=== PATIENT | female | born 1970 | race Hispanic/Latino ===

== ENCOUNTER → 2020-05-18 | Outpatient (CLI) | payer OTHER | END | disposition home or self-care (01) | LOC: OIH 13:45 | PROVIDERS: ATTEND Internal Medicine | DX: M43.17 Spondylolisthesis, lumbosacral region (principal); M47.816 Spondylosis without myelopathy or radiculopathy, lumbar region; M48.061 Spinal stenosis, lumbar region without neurogenic claudication; R14.0 Abdominal distension (gaseous) | CPT/HCPCS: 72100 ==

== ENCOUNTER → 2020-06-12 | Outpatient (CLI) | payer OTHER | END | disposition home or self-care (01) | LOC: RAH 11:07 | PROVIDERS: ATTEND Internal Medicine | DX: M43.16 Spondylolisthesis, lumbar region (principal); M54.5 Low back pain | CPT/HCPCS: 72100 ==

== ENCOUNTER → 2020-08-20 | Outpatient (CLI) | payer OTHER | END | disposition home or self-care (01) | LOC: OIH 10:57 | PROVIDERS: ATTEND Internal Medicine | DX: I10 Essential (primary) hypertension (principal); M47.814 Spondylosis without myelopathy or radiculopathy, thoracic region | CPT/HCPCS: 71046 ==

== ENCOUNTER → 2022-05-13 | Outpatient (CLI) | payer OTHER | END | disposition home or self-care (01) | LOC: RAH 08:54 | PROVIDERS: ATTEND Internal Medicine | DX: M70.62 Trochanteric bursitis, left hip (principal); Y93.89 Activity, other specified | CPT/HCPCS: 73502 ==

== ENCOUNTER 2022-07-31 13:21 | Emergency (ER) | payer OTHER ==
[~2022-07-31] VITALS: Ht 154.9 cm; Wt 81.6 kg
[2022-07-31 13:25] VITALS: BP 143/74
[2022-07-31] MEDS ORDERED: TETRACAINE HCL 0.5% 4 ML OPHTH SOLN ONE (14:52)
[2022-07-31] MEDS ORDERED: FLUORESCEIN SODIUM 1 STRIP STRIP ONE (14:53)
[2022-07-31] MEDS ORDERED: ERYTHROMYCIN BASE 0.5% OPHTH OINT 1 GM TUBE OU SCH (15:30)
[2022-07-31] MEDS ORDERED: ERYT1OIN7 OP (17:21)
== END 2022-07-31 17:27 | disposition home or self-care (01) ==
LOC: EDH 13:21
DX: H10.9 Unspecified conjunctivitis (principal); E78.00 Pure hypercholesterolemia, unspecified; I10 Essential (primary) hypertension; Z90.49 Acquired absence of other specified parts of digestive tract; Z98.890 Other specified postprocedural states; Z86.73 Personal history of transient ischemic attack (TIA), and cerebral infarction without residual deficits

== ENCOUNTER 2025-09-24 08:58 | Inpatient (IN) | payer SELFPAY ==
[~2025-09-24] VITALS: Ht 154.9 cm; Wt 79.4 kg
[~2025-09-24 08:58] MED LIST: ERYT1OIN7 OP
[2025-09-24 09:24] LABS: IMMATURE GRANULOCYTE ABSOLUTE 0.04 K/uL (0-1); NUCLEATED RED BLOOD CELLS 0.0 % (0.0-0.19); PLATELET COUNT (AUTO) 333 K/uL (130-400); RED BLOOD CELL COUNT(AUTO) 4.36 MIL/uL (4.00-5.50); RED CELL DISTRIBUTION WIDTH 14.3 % (11.0-15.5); WHITE BLOOD COUNT (AUTO) 10.9 K/uL (4.8-10.8)
[2025-09-24 09:33] LABS: CREATININE 0.8 mg/dL (0.5-1.0); GLOMERULAR FILTR. RATE CALC 88.0 mL/min (>90); GLUCOSE,RANDOM 184.0 mg/dL (70-105); SODIUM SERUM 134.0 mmol/L (136-145); UREA NITROGEN, BLOOD 13.0 mg/dL (7-18)
[2025-09-24 09:40] LABS: INR 1.0 (0.85-1.15)
[2025-09-24] MEDS: FAMOTIDINE 20MG VIAL IV ONE (09:40)
[2025-09-24 09:50] LABS: TOTAL PROTEIN, SERUM 7.5 g/dL (6.0-8.3)
[2025-09-24 10:01] LABS: ASPARTATE AMINOTRANSFERASE 1232.0 U/L (10-37)
--- NOTE | 2025-09-24 11:00 | NUR ---
PT'S DAUGHTER INFORMED ME THAT PATIENT SELF MEDICATES TYLENOL AT HOME,NOT KEEPING APPROPRIATE DOSING. SHE ALSO INFORMED ME THAT PT HAS HISTORY OF COCAINE AND ALCOHOL USE.RELAYED INFORMATIONS TO DR KURTZ, NO NEW ORDERS AT THIS TIME.
[2025-09-24] MEDS: 0.9%NACL 1000ML 1,000 ML IV ONE (11:06)
[2025-09-24 12:13] LABS: APPEARANCE,URINE CLOUDY (CLEAR); GLUCOSE, URINE (UA) NEGATIVE (NEGATIVE); LEUKOCYTE ESTERASE ,URINE NEGATIVE Leu/uL (NEGATIVE); NITRATE,URINE NEGATIVE (NEGATIVE); OCCULT BLOOD,URINE NEGATIVE (NEGATIVE)
[2025-09-24 12:15] LABS: OTHER CASTS, URINE 2 /LPF (None Seen); SQUAMOUS EPITHELIAL CELL,UR MOD /HPF (0-2)
--- NOTE | 2025-09-24 12:41 | HMCIMG ---
EXAM: CT Abdomen and Pelvis Without IV contrast CLINICAL HISTORY: Abdominal pain TECHNIQUE: Axial computed tomography images of the abdomen and pelvis without intravenous contrast. CONTRAST: No IV contrast. COMPARISON: None provided. FINDINGS: LUNG BASES: Basal atelectasis along both lower lobes. LIVER: The liver appears to be enlarged in size; the right hepatic lobe measures up to 19.5 cm. GALLBLADDER AND BILE DUCTS: Post cholecytectomy status. PANCREAS: Unremarkable. SPLEEN: A subcentimeter-sized calcified granuloma. ADRENAL GLANDS: Unremarkable. KIDNEYS, URETERS, AND BLADDER: The kidneys appear within normal limits. There is no hydronephrosis or hydroureter. No urinary calculi are seen. STOMACH AND BOWEL: Unremarkable appearance of the stomach and bowel. No evidence of bowel obstruction. Colonic diverticulosis without diverticulitis. APPENDIX: No evidence of acute appendicitis on CT examination. PERITONEUM: No free fluid. No free air. LYMPH NODES: No lymphadenopathy is evident. REPRODUCTIVE: Hysterectomy. VASCULATURE: No evidence of abdominal aortic aneurysm. BONES: Anterolisthesis of the L5 vertebrae over the S1 vertebrae with breach along the pars interarticularis. Degenerative changes, more prominent along the visualized thoracic spine. IMPRESSION: 1. Hepatomegaly with the right hepatic lobe measuring up to 19.5 cm. 2. Anterolisthesis of L5 over S1 with pars interarticularis defect. 3. Moderate stool burden in the colon. /[place]
--- NOTE | 2025-09-24 13:25 | ERN ---
General Chief Complaint: Abdominal Pain Stated Complaint: ABD PAIN Time Seen by MD: 09:05 Source: patient, family History of Present Illness Initial Comments Ms Simpson, 55F was brought to ER by her daughter due to severe abdominal pain since 3 weeks. Her daughter reports that they have been to emergency room 4 times to [facility], was told 4 different diagnosis like lumbar strain, diverticulosis, spondylosis and the pain came back repeatedly. She reports diffuse abdominal pain on a scale of 10 x 10 since 3 weeks, was not passing stool since 2 days, lost 15 lbs in the last 3 weeks due to low intake of food, not relieved by any medication. She informs that they have tried lactulose and enema for clearing the bowel but have not helped much. Complaints no fever or weakness or jaundice or vomiting. Timing/Duration: getting worse Severity: moderate Allergies: Coded Allergies: No Known Allergies (Unverified Allergy, Unknown, 07/31/22) Home Meds Active Scripts Erythromycin Base (Erythromycin) 1 Gm Oint...g., 1 GM OP QID for eye infection for 7 Days, #1 TUBE Prov:MELODIE RENNER 07/31/22 Past Medical History Past Medical History: Depression, Diabetes-Type II, Diverticulitis, Diverticulosis, Hypertension, Stroke Past Surgical History: Hysterectomy, Cholecystectomy Constitutional: (-) chills, (-) diaphoresis, (-) fever, (-) malaise, (-) weakness, (-) other documentation EENTM: (-) eye pain, (-) blurred vision, (-) tearing, (-) double vision, (-) ear pain, (-) ear discharge, (-) nose pain, (-) nose congestion, (-) throat pain, (-) Throat swelling, (-) mouth pain, (-) tooth pain, (-) mouth swelling, (-) other documentation Respiratory: (-) cough, (-) orthopnea, (-) short of breath, (-) stridor, (-) wheezing, (-) other documentation Cardiovascular: (-) chest pain, (-) edema, (-) palpitations, (-) syncope, (-) dyspnea on exertion, (-) other documentation Gastrointestinal/Abdominal: (+) abdominal pain, (+) abdominal distention, (+) constipation Musculoskeletal: (+) back pain Physical Exam General Appearance: (+) severe distress Orientation: (+) alert, (+) oriented x 3 Head/Face Trauma: No Eye: bilateral eye normal inspection Ear, Nose, Throat: (+) hearing grossly normal, (+) normal ENT inspection, (+) moist mucous membraine Neck: (+) normal inspection, (+) supple Respiratory: (+) chest non-tender, (+) lungs clear, (+) well ventilated Heart: (+) regular, (+) no gallop Vascular: (+) no edema Gastrointestinal: (+) soft, (+) non-tender Breast Exam: (+) deferred Genital: (+) deferred Rectal: (+) deferred Extremities: (+) normal range of motion Neurologic/Psychiatric: (+) normal speech, (+) no motor defecits, (+) no sensory deficits Skin: (+) normal color Results Laboratory and Microbiology Lab and Micro Result Laboratory Tests Test 09/24/25 09:16 09/24/25 11:57 White Blood Count 10.9 K/uL (4.8-10.8) H Red Blood Count 4.36 MIL/uL (4.00-5.50) Hemoglobin 11.5 g/dL (12.0-16.0) L Hematocrit 35.9 % (36-48) L Mean Corpuscular Volume 82.3 fL (79-99) Mean Corpuscular Hemoglobin 26.4 pg (27.0-33.0) L Mean Corpuscular Hemoglobin Concent 32.0 g/dL (32.0-36.0) Red Cell Distribution Width 14.3 % (11.0-15.5) Platelet Count 333 K/uL (130-400) Mean Platelet Volume 9.8 fL (7.5-10.5) Immature Granulocyte % (Auto) 0.4 % (0-1) Neutrophils (%) (Auto) 85.3 % (40.0-77.0) H Lymphocytes (%) (Auto) 7.3 % (21.0-51.0) L Monocytes (%) (Auto) 5.4 % (3.0-13.0) Eosinophils (%) (Auto) 1.2 % (0.0-8.0) Basophils (%) (Auto) 0.4 % (0.0-5.0) Neutrophils # (Auto) 9.3 K/uL (1.8-7.7) H Lymphocytes # (Auto) 0.8 K/uL (1.0-4.8) L Monocytes # (Auto) 0.6 K/uL (0.1-1.0) Eosinophils # (Auto) 0.13 K/uL (0.00-0.70) Basophils # (Auto) 0.04 K/uL (0.00-0.20) Absolute Immature Granulocyte (auto 0.04 K/uL (0-1) Nucleated Red Blood Cells 0.0 % (0.0-0.19) White Cell Morphology Comment See comments Prothrombin Time 10.6 SEC (9.6-11.6) Prothromb Time International Ratio 1.00 (0.85-1.15) Activated Partial Thromboplast Time 25.6 SEC (26.3-35.5) L Sodium Level 134 mmol/L (136-145) L Potassium Level 4.0 mmol/L (3.5-5.1) Chloride Level 99 mmol/L (101-111) L Carbon Dioxide Level 26 mmol/L (21-32) Blood Urea Nitrogen 13 mg/dL (7-18) Creatinine 0.8 mg/dL (0.5-1.0) Glomerular Filtration Rate Calc 88 mL/min (>90) Random Glucose 184 mg/dL (70-105) H Lactic Acid Level 2.0 mmol/L (0.8-2.5) Total Calcium 8.9 mg/dL (8.5-10.1) Total Bilirubin 1.6 mg/dL (0.2-1.0) H Direct Bilirubin 0.9 mg/dL (0.0-0.3) H Aspartate Amino Transf (AST/SGOT) 1232 U/L (10-37) *H Alanine Aminotransferase (ALT/SGPT) 1066 U/L (12-78) *H Alkaline Phosphatase 178 U/L (50-136) H Troponin I High Sensitivity < 4 ng/L (4-50) L Total Protein 7.5 g/dL (6.0-8.3) Albumin 3.6 g/dL (3.5-5.0) Lipase 28 U/L (16-77) Procalcitonin 0.18 ng/mL (0.05-0.5) Urine Color YELLOW (YELLOW) Urine Appearance CLOUDY (CLEAR) H Urine pH 5.5 (5.0-8.0) Urine Specific [place] 1.031 (1.001-1.031) Urine Protein 20 mg/dL (NEGATIVE) H Urine Glucose (UA) NEGATIVE mg/dL (NEGATIVE) Urine Ketones 5 mg/dL (NEGATIVE) H Urine Occult Blood NEGATIVE (NEGATIVE) Urine Nitrate NEGATIVE (NEGATIVE) Urine Bilirubin NEGATIVE mg/dL (NEGATIVE) Urine Urobilinogen 3 mg/dL (0.2-1.0) H Urine Leukocyte Esterase NEGATIVE Randy/uL Urine RBC 2-5 /HPF (0-1) H Urine WBC 0-1 /HPF (0-1) Urine Squamous Epithelial Cells MOD /HPF (0-2) Urine Bacteria None /HPF (None Seen) Urine Other Casts 2 /LPF (None Seen) MDM MDM: Differential diagnosis: Rationale: Tests considered and ordered secondary to shared decision making include: labs, ECG and radiology Previous outside records reviewed: Old ER visits. Risk of complication and/or morbidity or mortality of patient management: None Medications-Per medication reconciliation Need for hospitalization: Patient does meet criteria for hospitalization. Need for emergency major/minor surgery: No There are no social concerns with this patient. Prescription drug management Prescriptions will include symptomatic care Patient's prior external medical records from other ER visits were reviewed by me as indicated. Prior testing and results from previous visits were reviewed. Prior tests were taken into account with medical decision making and resource utilization, independent historian/historians were used to obtain complete me dical history. I independently interpreted the test that were performed, results were reviewed by me and considered findings on radiology if ordered. Medical management and examination interpretation discussions were had by me with other qualified healthcare professionals as indicated for the patient's care. ED Course Orders Procedure Category Date Status Time 12 Lead Ekg Tracing- EKG 09/24/25 Logged Technical : Cbc With Differential LAB 09/24/25 Complete 09:06 Basic Metabolic Panel LAB 09/24/25 Complete 09:06 Hepatic Function Panel LAB 09/24/25 Complete 09:06 Lactic Acid LAB 09/24/25 Complete 09:06 Lipase LAB 09/24/25 Complete 09:06 Procalcitonin LAB 09/24/25 Complete 09:06 Pt And Ptt LAB 09/24/25 Complete 09:06 Troponin I High LAB 09/24/25 Complete Sensitivity 09:06 Urinalysis LAB 09/24/25 Complete W/Microscopic 09:06 Ondansetron 4mg Inj PHA 09/24/25 Complete (Zofran 4mg Inj) 09:30 Famotidine 20mg Vial PHA 09/24/25 Complete (Pepcid 20mg Vial) 09:30 Morphine 2mg Syg PHA 09/24/25 Complete (Morphine 2mg Syg) 09:30 Ct Abdomen/Pelvis W/O CT 09/24/25 Resulted Contrast 09:25 Morphine 2mg Syg PHA 09/24/25 Complete (Morphine 2mg Syg) 11:00 0.9%Nacl 1000ml (Ns PHA 09/24/25 Complete 1000ml) 11:00 Current Medications Medications (Trade) Dose Ordered Sig/Roc Route PRN Reason Start Time Stop Time Status Last Admin Dose Admin Famotidine (Pepcid 20mg Vial) 20 mg ONCE ONCE IV 09/24/25 09:30 09/24/25 09:31 DC 09/24/25 09:40 Morphine Sulfate (morPHINE 2MG SYG) 2 mg ONCE ONCE IVP 09/24/25 09:30 09/24/25 09:31 DC 09/24/25 09:41 Morphine Sulfate (morPHINE 2MG SYG) 2 mg ONCE ONCE IVP 09/24/25 11:00 09/24/25 11:01 DC 09/24/25 11:05 Ondansetron HCl (zoFRAN 4MG INJ) 4 mg ONCE ONCE IVP 09/24/25 09:30 09/24/25 09:31 DC 09/24/25 09:40 Sodium Chloride 1,000 ml @ 0 mls/hr ONCE ONCE IV 09/24/25 11:00 09/24/25 11:01 DC 09/24/25 11:06 Vital Signs Date Time Temp Pulse Resp B/P (MAP) Pulse Ox O2 Delivery O2 Flow Rate FiO2 09/24/25 12:58 99.3 95 21 140/80 98 Room Air* 0 09/24/25 11:00 99.3 89 21 146/74 98 Room Air* 0 09/24/25 09:48 99.3 89 22 127/70 96 Room Air* 0 09/24/25 08:59 97.3 92 18 128/64 54 Room Air 0 DX & DISP Disposition: Inpatient Departure Impression: Primary Impression: Transaminitis Condition: Stable Referrals: MACY JC MD (PCP) CHIVO ESPINOZA MD Sep 24, 2025 13:25 BRANNON KURTZ MD Sep 24, 2025 14:12
[2025-09-24] MEDS: DEXTROSE 5 %-0.45 % NACL 1,000 ML IV SCH (18:31)
[2025-09-24] MEDS ORDERED: LISI40TA15 PO (20:39)
[2025-09-24] MEDS ORDERED: AMLO-258 PO (20:39)
[2025-09-24] MEDS ORDERED: METF-526 PO (20:39)
[2025-09-24] MEDS ORDERED: LIRA0.6P SQ (20:39)
[2025-09-24 21:25] VITALS: BP 134/95; PULSE 109; RESP 20; TEMP 102.1
[2025-09-24 21:30] VITALS: O2SAT 93
[2025-09-24] MEDS ORDERED: ATOR10 PO (21:30)
[2025-09-25] VITALS (8 sets, daily range): BP systolic 132–154; BP diastolic 63–79; PULSE 96–117; RESP 14–22; TEMP 98–101.9; O2SAT 92–95
[2025-09-25 05:15] LABS: ASPARTATE AMINOTRANSFERASE 336.0 U/L (10-37); CREATININE 0.6 mg/dL (0.5-1.0); GLOMERULAR FILTR. RATE CALC 107.0 mL/min (>90); GLUCOSE,RANDOM 157.0 mg/dL (70-105); SODIUM SERUM 134.0 mmol/L (136-145); TOTAL PROTEIN, SERUM 6.8 g/dL (6.0-8.3); UREA NITROGEN, BLOOD 10.0 mg/dL (7-18)
--- NOTE | 2025-09-25 15:51 | NUR ---
DCP CM MET WITH PT THIS AFTERNOON, INITIAL ASSESSMENT DONE. PATIENT IS INDEPENDENT PRIOR TO HOSPITALIZATION, LIVES AT HOME WITH HER AND DAUGHTER. DENIES ANY EQUIPMENT/SERVICES. FEELS SAFE TO GO BACK HOME, STILL DRIVE, FAMILY ABLE TO ASSIST WITH TRANSPORTATION AND NEEDS NECESSARY. GOES TO [facility] FOR MEDS. DCP HOME ONCE STABLE. CM TO CONTINUE TO FOLLOW UP.
--- NOTE | 2025-09-25 20:00 | HP ---
HISTORY OF PRESENT ILLNESS: The patient of Dr. Awan came to the Emergency Room complaining of persistent abdominal pain for the last 3 weeks. The patient has been coming to the Emergency Room several times for the same reason, and there has been no nausea, vomiting, or diarrhea. No jaundice. The patient was evaluated with labs and was found to have transaminases above 1000, and CT scan shows some hepatomegaly of 20 cm. I was called to assume care. PAST MEDICAL HISTORY: Type 2 diabetes, hypertension, depression. PAST SURGICAL HISTORY: Hysterectomy, cholecystectomy. REVIEW OF SYSTEMS: No fever, chills, seizure, loss of consciousness. No chest pain, palpitation. No cough, wheezes, or rhonchi. No nausea, vomiting, or diarrhea. No dysuria, urgency, or frequency. No rashes, petechiae, or ecchymosis. No hallucinations, delusions. No suicidal ideation. PHYSICAL EXAMINATION: GENERAL: She is awake, alert, oriented to person, time, and place. Not in distress. VITAL SIGNS: In the chart. HEENT: Normocephalic, atraumatic. LUNGS: Clear to auscultation. HEART: S1, S2 are distant. ABDOMEN: Prominent, soft. Tender to deep palpation, right upper quadrant. Hepatomegaly is palpated. Bowel sounds are present. LABORATORY DATA: WBC 10.9, hemoglobin 11.5, platelets 333, potassium 4, sodium 134, BUN 13, creatinine 0.8, lactic acid 2, AST 1232, ALT 1066. Lipase was 28, albumin 3.6, total bilirubin 1.6. Abdomen and pelvis CT scan was reported as: * Hepatomegaly with the right hepatic lobe measuring 19.5 cm. * Anterolisthesis of L5 over L1 with pars interarticularis defect. * Moderate stool burden in the colon. ASSESSMENT AND PLAN: * Abdominal pain. Positive workup for hepatomegaly as well as significant increased transaminases consistent with hepatitis. Hepatitis profile has been requested. GI consultation was made. At this time, doctor on-call is taking only emergencies. * Continue with Dilaudid for pain management. There is no morphine available. * Continue treatment for type 2 diabetes, hypertension. Follow up in a.m. with labs. DOS: 09/25/2025 TID: [id number] RECEIPT: [id number] [facility]
[2025-09-25] MEDS: LACTULOSE 20 GM/30 ML UDCUP PO ONE (23:00)
[2025-09-26] VITALS (8 sets, daily range): BP systolic 129–153; BP diastolic 68–79; PULSE 80–117; RESP 18–22; TEMP 98.3–100.7; O2SAT 94–97
[2025-09-26 10:01] LABS: IMMATURE GRANULOCYTE ABSOLUTE 0.11 K/uL (0-1); NUCLEATED RED BLOOD CELLS 0.0 % (0.0-0.19); PLATELET COUNT (AUTO) 257 K/uL (130-400); RED BLOOD CELL COUNT(AUTO) 3.79 MIL/uL (4.00-5.50); RED CELL DISTRIBUTION WIDTH 14.6 % (11.0-15.5); WHITE BLOOD COUNT (AUTO) 13.0 K/uL (4.8-10.8)
[2025-09-26 10:17] LABS: CREATININE 0.7 mg/dL (0.5-1.0); GLOMERULAR FILTR. RATE CALC 103.0 mL/min (>90); GLUCOSE,RANDOM 176.0 mg/dL (70-105); SODIUM SERUM 129.0 mmol/L (136-145); UREA NITROGEN, BLOOD 8.0 mg/dL (7-18)
[2025-09-26 10:22] LABS: ASPARTATE AMINOTRANSFERASE 76.0 U/L (10-37); TOTAL PROTEIN, SERUM 6.8 g/dL (6.0-8.3)
--- NOTE | 2025-09-26 11:20 | EKG ---
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
[2025-09-26 12:51] LABS: CREATINE KINASE, TOTAL 90 U/L (21-232); GAMMA GLUTAMYL TRANSFERASE 304 U/L (5-85)
--- NOTE | 2025-09-26 16:29 | HMCIMG ---
CHEST 1VW REASON: LEUKOCYSTOSIS COMPARISON: Prior study from 08/20/2020. FINDINGS: Single view of the chest was obtained. Lungs are clear. There is mild cardiomegaly with left ventricular contour.. There is no pulmonary vascular congestion. Mediastinum and bony thorax appear unremarkable. IMPRESSION: 1. Cardiomegaly with left ventricular contour 2. No evidence of airspace consolidation or pulmonary venous congestion..
[2025-09-26 19:33] LABS: HEPATITIS A IGM ANTIBODY Non-Reactive (Nonreactive); HEPATITIS B CORE IGM ANTIBODY Non-Reactive (Negative)
[2025-09-26 20:10] LABS: COVID19 (SARS ANTIGEN RAPID) PRESUMPTIVE NEGATIVE (NEGATIVE); INFLUENZA TYPE A Negative For Type A (NEGATIVE); INFLUENZA TYPE B Negative For Type B (NEGATIVE)
[2025-09-27] VITALS (8 sets, daily range): BP systolic 131–165; BP diastolic 60–75; PULSE 94–107; RESP 18–20; TEMP 99–101.1; O2SAT 90–91
--- NOTE | 2025-09-27 03:20 | PN ---
SUBJECTIVE: The patient continues with diffuse abdominal pain. No nausea or vomiting. She had an episode of fever yesterday. Workup was sent. We will test the patient for influenza, COVID and strep as well. Otherwise, blood culture has been sent. OBJECTIVE: GENERAL: Currently, she is awake, alert, oriented in person, time, and place. VITAL SIGNS: Blood pressure 132/76, pulse 117, respirations 18, temperature 100.8. HEENT: Normocephalic, atraumatic. LUNGS: Clear to auscultation. ABDOMEN: Prominent, soft, nontender. No masses. Bowel sounds are present. EXTREMITIES: No clubbing or cyanosis. LABORATORY DATA: WBC count 13, hemoglobin 10, platelets 257. Sodium 129, potassium 4.1, BUN 8, creatinine 0.7, glucose 176, total bilirubin down to 1.2, AST down to 76, ALT 375. ASSESSMENT AND PLAN: * Fever. Workup will be sent including influenza, strep, pending hepatitis profile, GGT, total creatinine kinase. * Hepatomegaly, transaminitis. Pending results of tests, continue to monitor. * Leukocytosis, fever, blood culture has been sent. The patient will be started on cefepime 1 g IV pending results of test. * Type 2 diabetes, hypertension. Continue home medications. * Ultrasound of the abdomen will be scheduled as well. * Follow up in a.m. with results. DOS: 09/26/2025 TID: [id number] RECEIPT: [id number] MTDJessika
[2025-09-27 06:01] LABS: INR 1.12 (0.85-1.15)
[2025-09-27 06:14] LABS: ASPARTATE AMINOTRANSFERASE 51.0 U/L (10-37); CREATININE 0.6 mg/dL (0.5-1.0); GLOMERULAR FILTR. RATE CALC 107.0 mL/min (>90); GLUCOSE,RANDOM 154.0 mg/dL (70-105); SODIUM SERUM 131.0 mmol/L (136-145); TOTAL PROTEIN, SERUM 6.9 g/dL (6.0-8.3); UREA NITROGEN, BLOOD 9.0 mg/dL (7-18)
--- NOTE | 2025-09-27 06:26 | HMCIMG ---
EXAMINATION: ULTRASOUND OF THE ABDOMEN WITH COLOR DOPPLER. CLINICAL HISTORY: Leukocytosis. COMPARISON: CT abdomen and pelvis without contrast dated 09/24/2025. TECHNIQUE: Real-time grayscale ultrasound images of the abdomen. In addition, color Doppler is medically necessary to perform in order to evaluate vascularity and blood flow. FINDINGS: Liver: Bulky in caliber, the right hepatic lobe measures 19.0 cm in the craniocaudal dimension. There is increased echogenicity of the hepatic parenchyma. There is no intrahepatic biliary ductal dilatation. There is normal spectral Doppler of the main portal vein. There are areas of focal fat sparing, adjacent to gallbladder fossa. Gallbladder: Post cholecystectomy status. Common bile duct is normal in caliber, measuring 0.4 cm. Spleen is bulky in caliber and measures 13.4 x 5.1 x 4.4 cm in craniocaudal, AP and transverse dimensions respectively. There are small calcific areas. Pancreas: Head and body appear normal in caliber and echotexture. No calcification or dilated pancreatic duct. Tail is obscured by overlying bowel gas. The kidneys are normal in caliber, the right kidney measures 10.7 x 4.5 x 5.8 cm and the left kidney measures 10.2 x 5.3 x 4.3 cm in craniocaudal, AP, and transverse dimensions respectively. There is normal renal cortical thickness, and cortical echogenicity. There is no renal calculus or hydronephrosis. The proximal and mid aspects of abdominal aorta are normal in caliber measuring 2.3 cm and 2.1 cm in the AP dimension respectively. The distal aorta is obscured by overlying bowel gas. Visualized aspects of the inferior vena cava are unremarkable. IMPRESSION: Hepatomegaly with hepatic steatosis and focal area of fat sparing. Post cholecystectomy status. Mild splenomegaly with granulomas. /[place]
[2025-09-27 10:14] LABS: IMMATURE GRANULOCYTE ABSOLUTE 0.05 K/uL (0-1); NUCLEATED RED BLOOD CELLS 0.0 % (0.0-0.19); PLATELET COUNT (AUTO) 274 K/uL (130-400); RED BLOOD CELL COUNT(AUTO) 3.87 MIL/uL (4.00-5.50); RED CELL DISTRIBUTION WIDTH 14.5 % (11.0-15.5); WHITE BLOOD COUNT (AUTO) 11.4 K/uL (4.8-10.8)
[2025-09-28] VITALS (9 sets, daily range): BP systolic 119–158; BP diastolic 60–85; PULSE 79–96; RESP 16–20; TEMP 97.9–100.1; O2SAT 93–95
--- NOTE | 2025-09-28 00:35 | HMCIMG ---
STUDY MR abdomen without IV contrast with MRCP CLINICAL HISTORY Persistent abdominal pain TECHNIQUE Multiplanar multisequence MRI of the abdomen including MRCP sequences performed without intravenous contrast CONTRAST None COMPARISON Abdominal ultrasound 09/26/[address] abdomen and pelvis without contrast 09/24/2025 FINDINGS Lower thorax Small bilateral pleural effusions are present, measuring up to approximately 1.5 cm on the right and 1.0 cm on the left in maximal thickness, with associated subpleural parenchymal scarring and dependent atelectasis at the lung bases. Liver and biliary system The liver is enlarged, measuring up to approximately 23 cm in craniocaudal dimension. Hepatic parenchyma demonstrates diffusely increased T1 and T2 signal characteristics consistent with fatty infiltration without a discrete focal hepatic mass. No intrahepatic biliary ductal dilatation is seen. The gallbladder is surgically absent. The common bile duct measures approximately 0.7 cm in diameter with smooth tapering to the ampullary region, without intraluminal filling defect on MRCP to suggest choledocholithiasis. Pancreas and spleen Pancreatic contour and signal are within normal limits without ductal dilatation or peripancreatic fluid collection. The spleen is normal in size and signal without focal lesion. Adrenals and kidneys Adrenal glands are unremarkable. Both kidneys are normal in size and morphology without hydronephrosis or focal renal mass. There is symmetric perinephric fat stranding around both kidneys, similar to prior CT, without discrete perinephric collection. Bowel and mesentery Stomach and visualized bowel loops show no evidence of obstruction or focal mural thickening on this noncontrast MRI. No free intraperitoneal fluid or loculated collection is identified. Vasculature and lymph nodes Abdominal aorta and major branches are normal in caliber without aneurysm. No pathologic abdominal or retroperitoneal lymphadenopathy is seen. Musculoskeletal There is edema along the left psoas muscle compatible with myositis or strain, concordant with prior CT. Degenerative changes at the lumbosacral junction are partially visualized, with advanced left-sided facet arthrosis at L4-L5 and L5-S1 and adjacent soft tissue edema. IMPRESSION * Hepatomegaly with diffuse hepatic steatosis; no focal hepatic lesion or biliary obstruction identified. * Status post cholecystectomy with common bile duct measuring approximately 0.7 cm and smoothly tapering to the ampulla, without MRCP evidence of choledocholithiasis. * Symmetric bilateral perinephric fat stranding without hydronephrosis or organized collection, nonspecific and unchanged from prior CT. * Left psoas muscle edema and advanced left L4-L5 and L5-S1 facet arthrosis, compatible with degenerative change and possible mechanical back or flank pain source, unchanged compared with prior CT. /[place]
[2025-09-28 04:57] LABS: IMMATURE GRANULOCYTE ABSOLUTE 0.06 K/uL (0-1); NUCLEATED RED BLOOD CELLS 0.2 % (0.0-0.19); PLATELET COUNT (AUTO) 293 K/uL (130-400); RED BLOOD CELL COUNT(AUTO) 3.72 MIL/uL (4.00-5.50); RED CELL DISTRIBUTION WIDTH 14.4 % (11.0-15.5); WHITE BLOOD COUNT (AUTO) 9.9 K/uL (4.8-10.8)
[2025-09-28 05:33] LABS: ASPARTATE AMINOTRANSFERASE 104.0 U/L (10-37); CREATININE 0.7 mg/dL (0.5-1.0); GLOMERULAR FILTR. RATE CALC 103.0 mL/min (>90); GLUCOSE,RANDOM 149.0 mg/dL (70-105); SODIUM SERUM 132.0 mmol/L (136-145); TOTAL PROTEIN, SERUM 6.9 g/dL (6.0-8.3); UREA NITROGEN, BLOOD 11.0 mg/dL (7-18)
[2025-09-28] MEDS: LIRAGLUTIDE 0.6 MG SQ SCH (09:00)
[2025-09-28] MEDS: amLODIPine 5 MG TAB PO SCH (10:08)
[2025-09-28] MEDS: LISINOPRIL 40 MG TABLET PO SCH (10:09)
[2025-09-28] MEDS ORDERED: PoTASSium chl 10% ELIXIR 20MEQ 20 MEQ/15 ML UDCUP PO PRN (15:00)
[2025-09-28] MEDS ORDERED: VANCOMYCIN PROTOCOL PER PHARMACY IV SCH (15:30)
[2025-09-28] MEDS: VANCOMYCIN 1.25 GM/250 ML BAG 250 ML IV SCH (17:17)
[2025-09-28] MEDS: PHARMACY COMMUNICATION MISC SCH (17:18)
--- NOTE | 2025-09-28 17:21 | NUR ---
REFUSING ENEMA AT THIS TIME: PATIENT REFUSED ENEMA WHEN ORIGINALLY ORDERED DUE TO PAIN. OFFERED TO PERFORM ENEMA BUT PATIENT REFUSED DUE TO FAMILY COMING TO VISIT. EDUCATED THAT EMEMA MAY HELP WITH ABDOMINAL DISCOMFORT BUT PATIENT REFUSED AND REQUESTED PAIN MEDICATION INSTEAD. WILL CONTINUE TO MONITOR AND OFFER LATER.
--- NOTE | 2025-09-28 20:09 | NUR ---
PATIENT AND FAMILY REQUESTING FOR CHANGE OF PRIMARY. DOES NOT WANT DR WOMACK OR DR JC PROVIDER. WOULD LIKE TRANSFER OF CARE FOR HOSPITALIST. REACHED OUT TO DR WOMACK. NO ANSWER.
--- NOTE | 2025-09-28 20:29 | PN ---
SUBJECTIVE: The patient is still having fevers 106 and 104 overnight. She has had blood cultures sent, pending results. Continue with cefepime IV. Otherwise, she is reporting improvement from the abdominal pain. OBJECTIVE: GENERAL: Currently awake, alert, and oriented in person, time, and place. VITAL SIGNS: Blood pressure 135/73, pulse 94, respirations 18. HEENT: Normocephalic, atraumatic. LUNGS: Clear to auscultation. HEART: S1, S2 are distant. ABDOMEN: Soft and nontender. EXTREMITIES: No clubbing or cyanosis, no edema. LABORATORY DATA: WBC count 11.4, hemoglobin 10.4, platelets 274. Sodium 131, potassium 4, BUN 9, creatinine 0.6, glucose 154. Total bilirubin down to 1.2, AST 51, ALT 270, albumin 2.3. Ultrasound shows hepatomegaly of 19 cm with hepatic steatosis and focal areas of fat sparing. Status post cholecystectomy. Mild splenomegaly with granulomas. Blood cultures reported with no growth after 24 hours. Previous culture shows gram-positive cocci in cluster 2 out of 2 sets, pending results of final ID. ASSESSMENT AND PLAN: * Fever. Positive cultures pending results of ID and sensitivity. Continue with cefepime IV. * Abdominal pain improving. Continue with analgesics. * Hepatosplenomegaly. Continue to monitor. Unknown reason at this time. * Type 2 diabetes. Resume metformin. * Abnormal LFTs with AST and ALT, elevated GGT in a patient with morbid obesity as well as on statins. We are going to discontinue atorvastatin. Continue to monitor liver enzymes that has improved progressively. * Hyperbilirubinemia, 1.3-1.2. MRCP has been ordered. Ultrasound shows normal caliber common bile duct. Continue to monitor. * Follow up in a.m. with results of tests. DOS: 09/27/2025 TID: [id number] RECEIPT: [id number] [facility]ENTER[facility]
--- NOTE | 2025-09-28 20:33 | NUR ---
NEW CONSULT FOR HOSPITALIST, SHANTA MADE AWARE OF PATIENT CHOICE TO NO LONGER BE UNDER HIS CARE.
--- NOTE | 2025-09-28 21:10 | NUR ---
ENEMA: PT REFUSED TO HAVE FLEETS ENEMA GIVEN AT THIS TIME. STATES SHE WANTS TO WAIT FOR HER DAUGHTER IN AM. DULCOLAX 10 MG PO GIVEN PRN AT THIS TIME.
--- NOTE | 2025-09-28 22:00 | NUR ---
NEW CONSULT: NEW CONSULT FOR DR. MANZANO FOR MEDICAL MANAGEMENT. ANSWERING SERVICE CALLED, LENA Nuñez NP COVERING. NURSE WAITING FOR CALL BACK.
[2025-09-29] VITALS (8 sets, daily range): BP systolic 126–153; BP diastolic 63–103; PULSE 85–102; RESP 13–19; TEMP 97.5–102; O2SAT 96–97
[2025-09-29 04:20] LABS: IMMATURE GRANULOCYTE ABSOLUTE 0.14 K/uL (0-1); NUCLEATED RED BLOOD CELLS 0.0 % (0.0-0.19); PLATELET COUNT (AUTO) 295 K/uL (130-400); RED BLOOD CELL COUNT(AUTO) 3.67 MIL/uL (4.00-5.50); RED CELL DISTRIBUTION WIDTH 14.5 % (11.0-15.5); WHITE BLOOD COUNT (AUTO) 10.7 K/uL (4.8-10.8)
[2025-09-29 04:44] LABS: ASPARTATE AMINOTRANSFERASE 190.0 U/L (10-37); CREATININE 0.6 mg/dL (0.5-1.0); GLOMERULAR FILTR. RATE CALC 107.0 mL/min (>90); GLUCOSE,RANDOM 148.0 mg/dL (70-105); SODIUM SERUM 136.0 mmol/L (136-145); TOTAL PROTEIN, SERUM 6.6 g/dL (6.0-8.3); UREA NITROGEN, BLOOD 10.0 mg/dL (7-18)
--- NOTE | 2025-09-29 06:55 | NUR ---
DR HOPKINS: DR. JC MADE AWARE PT/FAMILY DO NOT WISH TO HAVE DR. WOMACK OR DR. JC PRIMARY CARE PHYSICIANS. DR. JC ASKED TO HAVE PRIMARY SERVICES TRANSFERRED TO HOSPITALIST GROUP.
--- NOTE | 2025-09-29 11:11 | PN ---
SUBJECTIVE: The patient's fever has decreased. Continue with IV cefepime. Cultures results are still pending. OBJECTIVE: GENERAL: She is currently awake, alert, oriented in person, time and place. Not in distress. VITAL SIGNS: Blood pressure 122/72, pulse 93, respirations 18. HEENT: Normocephalic, atraumatic. LUNGS: Clear to auscultation. ABDOMEN: Prominent, soft, nontender. No rebound. Hepatomegaly is felt. EXTREMITIES: No clubbing, cyanosis, no edema. LABORATORY DATA: WBC count down to 9.9, hemoglobin 9.8, platelets 293. Sodium 132, potassium 3.6, BUN 11, creatinine 0.7, glucose 149. Total bilirubin 1.3, AST 104, ALT 250, albumin 2.2. Blood cultures are still pending. It is gram positive cocci, pending ID. MRCP report shows hepatomegaly with diffuse hepatic steatosis. No focal hepatic lesions or biliary obstruction. Common bile duct is normal, 0.7 cm. Symmetrical bilateral perinephric fat stranding without hydronephrosis or organized collection. Unchanged from previous CT. Left psoas muscle edema and advanced left L4-L5 and L5-S1 facet arthrosis compatible with degenerative change and possible mechanical back or flank pain source, unchanged compared to previous CT scan. ASSESSMENT AND PLAN: * Back pain most likely related to L4-L5, L5-S1 arthrosis. Continue with analgesics. * Abdominal pain, hepatomegaly. The MRCP did not show any splenomegaly at this time. Continue to monitor. Abnormal LFTs have decreased since admission. The patient is off statin. Continue to monitor. * Fever, leukocytosis. The patient's cultures are still pending. However, the WBC count has improved with cefepime. We will continue with current treatment and we are going to schedule her for an echocardiogram and adjust antibiotics with results of cultures. The patient is being followed by Dr. Alston. We will transfer service to him. DOS: 09/28/2025 TID: [id number] RECEIPT: [id number] [facility]
--- NOTE | 2025-09-29 11:29 | NUR ---
SPOKE TO CLARITZA MOURA NP REGARDING PATIENT TRANSFERRING SERVICE FROM DR. JC TO [facility]. GYMNASTICS COACH OR INSTRUCTOR STATED TRANSFERRING PATIENT TO THEIR LIST WAS NOT POSSIBLE. FAMILY WISHES TO NOT BE RECEIVING CARE FROM DR. WOMACK OR DR. JC.
--- NOTE | 2025-09-29 12:23 | NUR ---
NOTIFIED BRIJESH DOUGHERTY NP REGARDING NEW CONSULT FOR PATIENT FRO ACUTE HEPATITIS. ALLOCATIONS CLERK AWARE.
--- NOTE | 2025-09-29 12:37 | NUR ---
CALLED DR. MANZANO FOR NEW CONSULT ON PATIENT. NO ANSWER. NURSE WAITING FOR CALL BACK.
--- NOTE | 2025-09-29 12:50 | NUR ---
FLEET ENEMA PERFORMED ON PATIENT. PATIENT NOTED TO NOT HAVE A NORMAL, SOFT BOWEL MOVEMENT.
[2025-09-29] MEDS: PoTASSium chloRIDE 20MEQ ER 20 MEQ ERTAB PO PRN (13:55)
--- NOTE | 2025-09-29 15:35 | CONS ---
GASTROENTEROLOGY CONSULTATION NOTE Date of Consultation: Sep 29, 2025 Time of Consultation: 15:29 History of Present Illness: [This is a 55-year-old female patient past medical history for type 2 diabetes, hypertension, and depression who presented to the emergency room with severe abdominal pain for the past three weeks. Initial WBC of 10.9, hemoglobin 11.5, platelets 333. Hemoglobin has since trended down to 9.7. Initial chemistries significant for sodium of 134, chloride 99, total bilirubin of 1.6, direct bilirubin 0.9, AST of 1232, ALT 1066, alkaline phos 178. Lipase of 28. Total bilirubin had trended down to 1.2 but has since increased to 1.5 today. AST has decreased to 190, ALT now at 304, alkaline phosphatase trended up to 187. Albumin of 2.1. PT 11.7, INR 1.12. RENETTA negative. Hepatitis panel negative. Initial CT of abdomen and pelvis showing hepatomegaly with the right hepatic lobe measuring up to 19.5 cm, anterolisthesis of L5 over S1 with pars interarticularis defect, moderate stool burden in colon. Abdominal ultrasound showing hepatomegaly with hepatic steatosis and focal area of fat sparing. Post cholecystectomy status. Mild splenomegaly with granulomas. MRCP showing hepatomegaly with diffuse hepatic steatosis; no focal hepatic lesion or biliary obstruction identified. Status post cholecystectomy with common bile duct measuring approximately 0.7 cm and smoothly tapering to the ampulla, without MRCP evidence of choledocholithiasis. Symmetric bilateral perinephric fat stranding without hydronephrosis or organized collection. Left psoas muscle edema and advanced left L4-L5 and L5-S1 facet arthrosis, compatible with degenerative change in possible mechanical back flank pain source. Chest x-ray showing cardiomegaly with left ventricular contour. No evidence of airspace co nsolidation or pulmonary venous congestion. On exam patient is awake, alert, and oriented x3 in no acute distress. Respirations are unlabored. Abdomen is soft and not distended. Elevated LFT findings discussed with patijanelley. She reports drinking a 24 rounds alcoholic drink daily for the past four years. Recommend abstaining from alcohol intake. Recommended she follow up at [facility] once discharge further evaluation and management. Patient agreed.] Review of Systems: CONSTITUTIONAL: No malaise or change in sensation of wellbeing. ENMT: No rhinorrhea, otorrhea, sinus pain, ear ache. CARDIOVASCULAR: No angina, palpitations, orthopnea or paroxysmal dyspnea. RESPIRATORY: No SOB. GASTROINTESTINAL: No abdominal pain, nausea, vomiting, diarrhea, hematemesis, melena or change in the patient's habitual bowel movements consistency/number. GENITOURINARY: No dysuria, hematuria or change in bladder continence. MUSCULOSKELETAL: No new muscle pain or decrease in muscular strength. No new maycol nt swelling, redness or tenderness. SKIN: No new rash. Past Medical History: Depression, Diabetes-Type II, Diverticulitis, Diverticulosis, Hypertension, Stroke Past Surgical History: Hysterectomy, Cholecystectomy Past Social History: Coded Allergies: No Known Allergies (Unverified Allergy, Unknown, 07/31/22) Physical Exam: GEN: Awake, alert, oriented in person, time and place, and in no acute distress. HEENT: No rhinorrhea. Oral mucosa is moist and within normal limits. CHEST: Lung auscultation revealed normal breath sounds bilaterally. CARDIAC:Heart sounds are regular. ABD: Soft, non-tender and not distended. No peritoneal signs on palpation. Normal bowel sounds. Last bm EXT: No cyanosis or clubbing. No edema. SKIN: Intact. No rashes. NEURO: Alert and oriented to name, place and person.No focal motor deficits. Normal speech. Vital Sign (Last 24 Hours) 09/29/25 09/29/25 04:21 11:39 Temp 97.9 Pulse 88 Resp 13 B/P (MAP) 135/74 Pulse Ox 95 O2 Delivery Nasal Cannula O2 Flow Rate 2.0 FiO2 24 Intake & Output (last 24hrs) 09/28/25 09/28/25 09/29/25 15:00 23:00 07:00 Intake Total 511.0 ml 500 ml 590.0 ml Balance 511.0 ml 500 ml 590.0 ml Laboratory: [ ] Laboratory: Test 09/29/25 04:08 Range/Units White Blood Count 10.7 4.8-10.8 K/uL Red Blood Count 3.67 L 4.00-5.50 MIL/uL Hemoglobin 9.7 L 12.0-16.0 g/dL Hematocrit 30.5 L 36-48 % Mean Corpuscular Volume 83.1 79-99 fL Mean Corpuscular Hemoglobin 26.4 L 27.0-33.0 pg Mean Corpuscular Hemoglobin Concent 31.8 L 32.0-36.0 g/dL Red Cell Distribution Width 14.5 11.0-15.5 % Platelet Count 295 130-400 K/uL Mean Platelet Volume 9.6 7.5-10.5 fL Immature Granulocyte % (Auto) 1.3 H 0-1 % Neutrophils (%) (Auto) 79.7 H 40.0-77.0 % Lymphocytes (%) (Auto) 7.8 L 21.0-51.0 % Monocytes (%) (Auto) 9.6 3.0-13.0 % Eosinophils (%) (Auto) 1.3 0.0-8.0 % Basophils (%) (Auto) 0.3 0.0-5.0 % Neutrophils # (Auto) 8.6 H 1.8-7.7 K/uL Lymphocytes # (Auto) 0.8 L 1.0-4.8 K/uL Monocytes # (Auto) 1.0 0.1-1.0 K/uL Eosinophils # (Auto) 0.14 0.00-0.70 K/uL Basophils # (Auto) 0.03 0.00-0.20 K/uL Absolute Immature Granulocyte (auto 0.14 0-1 K/uL Nucleated Red Blood Cells 0.0 0.0-0.19 % Sodium Level 136 136-145 mmol/L Potassium Level 3.4 L 3.5-5.1 mmol/L Chloride Level 97 L 101-111 mmol/L Carbon Dioxide Level 30 21-32 mmol/L Blood Urea Nitrogen 10 7-18 mg/dL Creatinine 0.6 0.5-1.0 mg/dL Glomerular Filtration Rate Calc 107 >90 mL/min Random Glucose 148 H 70-105 mg/dL Total Calcium 8.2 L 8.5-10.1 mg/dL Total Bilirubin 1.5 H 0.2-1.0 mg/dL Aspartate Amino Transf (AST/SGOT) 190 H 10-37 U/L Alanine Aminotransferase (ALT/SGPT) 304 H 12-78 U/L Alkaline Phosphatase 187 H 50-136 U/L Total Protein 6.6 6.0-8.3 g/dL Albumin 2.1 L 3.5-5.0 g/dL Current Medications Medications (Trade) Dose Ordered Sig/Roc Route PRN Reason Start Time Stop Time Status Last Admin Dose Admin Acetaminophen (TYLenol 325MG TAB) 650 mg Q4H PRN PO TEMPERATURE GREATER THAN 101.5 09/24/25 23:00 10/24/25 22:59 09/27/25 20:00 650 MG Amlodipine Besylate (NorvASC 5MG TAB) 10 mg DAILY PO 09/28/25 09:00 10/28/25 08:59 09/29/25 09:24 10 MG Bisacodyl (DulcoLAX 5MG TAB) 10 mg DAILY PRN PO CONSTIPATION 09/28/25 18:30 10/28/25 18:29 09/28/25 21:08 10 MG Cefepime HCl (MAXipime 1 GM vial) 1 gm Q12H IVPB 09/26/25 11:30 10/06/25 11:29 09/29/25 10:45 1 GM Dextrose/Sodium Chloride 1,000 ml @ 50 mls/hr Q20H IV 09/24/25 16:00 10/24/25 15:59 09/28/25 10:25 50 MLS/HR Home Med (Home Medication) (Liraglutide (Victoza 2-Deon) ... DAILY SQ 09/28/25 09:00 10/28/25 08:59 Hydromorphone HCl (DiLAUDid 0.5MG INJ) 0.5 mg Q6H PRN IVP SEVERE PAIN (7-10) 09/24/25 16:30 09/24/25 21:33 DC 09/24/25 16:53 0.5 MG Hydromorphone HCl (DiLAUDid 0.5MG INJ) 1 mg Q4HPRN PRN IVP SEVERE PAIN (7-10) 09/24/25 22:00 09/29/25 16:29 09/27/25 23:59 0.5 MG Hydromorphone HCl (DiLAUDid 2MG TAB) 2 mg Q6H PRN PO SEVERE PAIN (7-10) 09/28/25 15:00 10/05/25 14:59 09/29/25 10:32 2 MG Lisinopril (Prinivil 40mg) 40 mg DAILY PO 09/28/25 09:00 10/28/25 08:59 09/29/25 09:24 40 MG Metformin HCl (glucoPHAGE XR) 500 mg DAILYBKFST PO 09/28/25 08:00 10/28/25 07:59 09/29/25 09:24 500 MG Morphine Sulfate (morPHINE 4MG SYG) 4 mg Q6H PRN IVP MODERATE PAIN (4-6) 09/24/25 16:00 10/01/25 15:59 09/29/25 13:55 4 MG Ondansetron HCl (zoFRAN 4MG INJ) 4 mg Q6H PRN IVP NAUSEA/VOMITING 09/24/25 16:00 10/24/25 15:59 09/28/25 21:04 4 MG Pantoprazole Sodium (PROTonix 40MG INJ) 40 mg DAILY IVP 09/25/25 09:00 10/25/25 08:59 09/29/25 10:45 40 MG Pharmacy Profile Note (Pharmacy Communication) 1 each ONCE MISC 09/28/25 15:30 09/29/25 06:33 DC 09/28/25 17:18 1 EACH Polyethylene Glycol (MIRalax 3350 17 GM POWD.PACK) 17 gm DAILY PO 09/29/25 09:00 10/29/25 08:59 09/29/25 09:25 17 GM Potassium Chloride 100 ml @ 100 mls/hr AD PRN IV POTASSIUM PROTOCOL 09/28/25 15:00 10/28/25 14:59 Potassium Chloride (K-Dur/Klor-Con 20meq) 20 meq AD PRN PO POTASSIUM PROTOCOL 09/28/25 15:00 10/28/25 14:59 09/29/25 13:55 20 MEQ Potassium Chloride (KCl 10% Elixir 20meq/15ml) 20 meq AD PRN PO POTASSIUM PROTOCOL 09/28/25 15:00 10/28/25 14:59 Vancomycin HCl 250 ml @ 125 mls/hr Q12H IV 09/28/25 16:00 10/08/25 15:59 09/29/25 03:05 125 MLS/HR Vancomycin HCl (Vancomycin Protocol) 1 each AD IV 09/28/25 15:30 10/12/25 15:29 Diagnostics / Radiology: [COPY/PASTE HERE IF NO REPORTS PLEASE DELETE SECTION] Assessment: [ Abdominal pain Transaminitis Anemia ] Plan: Case discussed with Dr. Tan [No Gi endoscopic intervention recommended at this time Liver serologies ordered. Please call with questions, concerns, and change in clinical status Thank you for this consult. ] BRIJESH DOUGHERTY [facility] Sep 29, 2025 15:35
--- NOTE | 2025-09-29 17:20 | NUR ---
PER PATIENT, PATIENT STATED, "MY DAUGHTER WILL LET YOU KNOW WHEN SHE SPEAKS TO BENCHMARK TO TRANSFER SERVICES." AT THIS MOMENT, NURSE IS WAITING FOR CALL BACK AND UPDATE FROM DAUGHTER.
[2025-09-29 22:06] LABS: HEPATITIS A IGM ANTIBODY Non-Reactive (Nonreactive); HEPATITIS B CORE AB TOTAL Non-Reactive (Nonreactive); HEPATITIS B CORE IGM ANTIBODY Non-Reactive (Negative)
[2025-09-30] VITALS (7 sets, daily range): BP systolic 133–154; BP diastolic 78–90; PULSE 76–96; RESP 16–19; TEMP 98.1–98.5; O2SAT 97–98
[2025-09-30] MEDS: VANCOMYCIN 1.5 GM/250 ML BAG 250 ML IV SCH (05:53)
--- NOTE | 2025-09-30 08:55 | NUR ---
CALLED DR. MANZANO ON NEW CONSULT FOR PATIENT. 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 JAMAL DARLING REGARDING TRANSFERRING SERVICES TO [facility].
--- NOTE | 2025-09-30 09:00 | NUR ---
CALLED DR. JAMAL DARLING REGARDING NEW CONSULT TO TRANSFER PATIENT SERVICES TO HOSPITALIST. DR. DARLING STATED HE WILL LOOK INTO PATIENT'S CASE AND DECIDE IF TRANSFERRING SERVICES WILL BE DONE. PER PATIENT AND FAMILY, PATIENT PREFERS [facility].
--- NOTE | 2025-09-30 09:20 | NUR ---
DR. DARLING STATED SERVICES WILL BE TRANSFERRED TO [facility]. ORDERS WILL BE PLACED IN BY MD STATED BY
--- NOTE | 2025-09-30 09:31 | HMCSR ---
APPROVED REPORT EXAM: Two-dimensional and M-mode echocardiogram with Doppler and color Doppler. INDICATION ICD: Bilateral pleural effusion 2D Dimensions RVDd 3.4 cm LVEF(%) 57.6 (>50%) LVED Vol(simp.) 73.0 mL IVSd 1.3 (0.7-1.1cm) FS(%) 30 % LVES Vol(simp.) 27.0 mL LVDd 4.6 (3.8-5.6cm) LA (2D) 3.7 (1.6-4.0cm) LVEF(%, simp.) 63 % PWd 1.3 (0.7-1.1cm) Ao Root(2D) 2.8 (2.0-3.7cm) LA ESV INDEX (BP) 24.60 mL/m2 IVSs 1.6 cm LVOT diam 2.1 (1.8-2.4cm) LVDs 3.2 (2.5-4.0cm) IVC diam 1.6 cm PWs 1.7 cm Deformation Strain Apical 4 -15.7 % Apical 2 -18.4 % Apical 3 -18.1 % Global Strain -17.4 % M-Mode Dimensions EPSS 0.6 cm LA (MM) 4.0 (1.6-4.0cm) Ao Root(MM) 3.0 (2.0-3.7cm) Aortic Valve AoV Vmax 1.7 m/s Ao Peak GR 11.3 mmHg LVOT Vmax 1.2 m/s AoV VTI 0.3 m Ao Mean GR 6.6 mmHg LVOT VTI 0.22 m JAZZMINE (VMAX) 2.46 cm2 JAZZMINE (VTI) 2.5 cm2 Mitral Valve MV E Vmax 90.3 cm/s DECEL Time 193 ms MV A Vmax 100.9 cm/s P 1/2 T 38 ms E/A ratio 0.9 MVA (PHT) 5.7 cm2 TDI E/E' Medial 17.0 E/E' Lateral 11.9 Medial E' Peak V 5.32 cm/s Lateral E' Peak V 7.57 cm/s Pulmonary Valve PV Vmax 1.2 m/s PV Mean GR 2.9 mmHg PV Peak GR 5.9 mmHg Tricuspid Valve TR Vmax 2.6 m/s RAP (EST) 3 mmHg RVSP 30.0 mmHg TR Peak GR 27.0 mmHg Left Ventricle The left ventricle is normal size. GLS -17.0% Mild concentric left ventricular hypertrophy. LVEF is 60-65%. The left ventricular diastolic function is normal. Right Ventricle The right ventricle is normal size. The right ventricular systolic function is normal. Atria The left atrium size is normal. The right atrium size is normal. Aortic Valve The aortic valve is normal in structure. No aortic regurgitation is present. There is no aortic valvular stenosis. Mitral Valve The mitral valve is normal in structure. There is trivial mitral valve regurgitation noted. There is no mitral valve stenosis. Tricuspid Valve The tricuspid valve is normal in structure. There is trace of tricuspid valve regurgitation noted. Pulmonic Valve The pulmonary valve is normal in structure. There is no pulmonic valvular regurgitation. Great Vessels The aortic root is normal in size. The IVC is normal in size and collapses >50% with inspiration. Pericardium There is no pericardial effusion. Other Information Quality : Adequate Conclusion LVEF is 60-65%. The left ventricular diastolic function is normal. Mild concentric left ventricular hypertrophy. The left ventricle is normal size. GLS -17.0% There is no pericardial effusion. Normal wall motion Study quality was adequate
[2025-09-30 09:51] LABS: IMMATURE GRANULOCYTE ABSOLUTE 0.38 K/uL (0-1); NUCLEATED RED BLOOD CELLS 0.2 % (0.0-0.19); PLATELET COUNT (AUTO) 324 K/uL (130-400); RED BLOOD CELL COUNT(AUTO) 3.72 MIL/uL (4.00-5.50); RED CELL DISTRIBUTION WIDTH 14.8 % (11.0-15.5); WHITE BLOOD COUNT (AUTO) 9.9 K/uL (4.8-10.8)
[2025-09-30] MEDS ORDERED: PHARMACY COMMUNICATION MISC SCH (10:00)
[2025-09-30 10:05] LABS: ERYTHROCYTE SEDIMENTATION RATE 89 MM/HR (0-30)
[2025-09-30 10:12] LABS: % IRON SATURATION 20.6 % (22-44); IRON, SERUM 42.0 mcg/dL (50-170)
[2025-09-30 10:44] LABS: ASPARTATE AMINOTRANSFERASE 136.0 U/L (10-37); CREATININE 0.5 mg/dL (0.5-1.0); GLOMERULAR FILTR. RATE CALC 111.0 mL/min (>90); GLUCOSE,RANDOM 134.0 mg/dL (70-105); LACTATE DEHYDROGENASE 246.0 U/L (81-234); SODIUM SERUM 136.0 mmol/L (136-145); TOTAL PROTEIN, SERUM 6.5 g/dL (6.0-8.3); UREA NITROGEN, BLOOD 7.0 mg/dL (7-18)
--- NOTE | 2025-09-30 10:53 | PN ---
[facility] PROGRESS NOTE Date of Service: Sep 30, 2025 Time of Service: 10:47 SUBJECTIVE: Date of service: 09/30/2025, patient was seen in [facility] room 415, 55-year-old female history of obesity, history of hypertension, hyperlipidemia, type 2 diabetes mellitus, who is currently admitted after she was found to have abdominal pain, back pain, she was found to have significant hepatitis as well. Patient was found to have positive blood cultures and I discussed with lab today, preliminarily, it is showing MSSA, pansensitive staph aureus. Patient reports that when she came in on the , she was having significant lower abdominal and lower back pain which was severe in intensity. She has been seen in the ER in [facility] earlier 2-3 times already and was diagnosed with muscle strain and sciatica. She has been feeling sick since earlier this September. She denies having any orthopedic hardware. She reports that lower back pain is [id number] in intensity and is improving. She is ambulating in the room. She denies any urinary or fecal incontinence. She denies any focal weakness of upper or lower extremities. Patient and family has requested transfer to the [facility] hospitalist service for continued care. Discussed with patient and family that blood cultures were positive for staph aureus, consultation with Infectious Disease will be requested, we will obtain a MRI of the lumbar and thoracic spine to rule out any diskitis/vertebral osteomyelitis or any complicating abscess. We will await results of 2D echocardiogram. REVIEW OF SYSTEMS CONSTITUTIONAL: Denies fevers, chills, or night sweats. No unintentional weight loss reported. NEUROLOGICAL: Denies headache, amaurosis fugax, motor weakness, sensory deficit, vertigo/spinning sensation, gait abnormalities, or tremors. Reports Having lower back pain ENT: No hearing loss, otalgia, otorrhea, rhinitis, rhinorrhea, hoarseness, or sore throat. CARDIOVASCULAR: Denies any exertional angina, dyspnea on exertion, orthopnea, paroxysmal nocturnal dyspnea, palpitations, life-threatening arrhythmias, claudication. PULMONARY: Denies any shortness of breath, cough, phlegm/sputum, hemoptysis, pleuritic chest pain. SLEEP: Denies morning headaches, daytime somnolence or napping. Denies difficulty falling asleep, staying asleep, waking from sleep. Denies knowledge of snoring. GASTROINTESTINAL: Denies any type of dysphagia to either liquids or solids. Denies nausea, vomiting, pyrosis, early satiety, abdominal pain, diarrhea, constipation, or changes in stool consistency or caliber. Denies coffee-ground emesis, hematemesis, hematochezia, or melanotic stools. GENITOURINARY: Denies frequency, urgency, nocturia, hematuria or incontinence (Storage/Irritative symptoms.) Low urinary stream, straining to void, urinary intermittency or hesitancy, splitting of the voiding stream, terminal dribbling. ENDOCRINOLOGIC: Denies polyuria, polydipsia, polyphagia or heat/cold intolerances. HEMATOLOGIC: Denies thrombophilia/previous clots, or coagulopathy/bleeding disorders. ONCOLOGIC: Denies personal history of malignancy. DERMATOLOGIC: Denies rashes or pruritus. PSYCHIATRIC: Denies any suicidal or homicidal ideation. Denies hallucinations. PHYSICAL EXAM GENERAL APPEARANCE: The patient is awake, alert, and oriented, in no acute cardiopulmonary distress. NEUROLOGICAL: Cranial nerves II-XII grossly intact. Motor is 5/5 in bilateral upper and lower extremities proximal to distal. No sensory deficits. HEENT: Face is symmetric. Pupils are equal and reactive. Extraocular movements are intact. NECK: Supple. No JVD. No thyromegaly. No submental, submandibular, pre- /postauricular, occipital or supraclavicular lymphadenopathy. CHEST: Normal chest expansion. No Telemetry. LUNGS: Absence of any rales, rhonchi or any wheezing. CARDIOVASCULAR: Regular. S1 and S2 normal. No appreciable rubs, murmurs or gallops. ABDOMEN: Soft, nontender, and nondistended. There is no rebound, voluntary guarding, or rigidity. : Deferred. No Cavanaugh. EXTREMITIES: Non-edematous and not cyanotic. No clubbing. Good capillary refill. SKIN: No skin breakdown. Vital Signs (last 8hr) Date Time Temp Pulse Resp B/P (MAP) Pulse Ox O2 Delivery O2 Flow Rate FiO2 09/30/25 08:00 98.1 83 18 135/79 96 Room Air 09/30/25 04:06 98.4 76 18 133/78 96 Room Air 21 LABS: Laboratory: Test 09/30/25 04:21 09/29/25 04:08 Range/Units White Blood Count 9.9 4.8-10.8 K/uL Red Blood Count 3.72 L 4.00-5.50 MIL/uL Hemoglobin 9.8 L 12.0-16.0 g/dL Hematocrit 30.4 L 36-48 % Mean Corpuscular Volume 81.7 79-99 fL Mean Corpuscular Hemoglobin 26.3 L 27.0-33.0 pg Mean Corpuscular Hemoglobin Concent 32.2 32.0-36.0 g/dL Red Cell Distribution Width 14.8 11.0-15.5 % Platelet Count 324 130-400 K/uL Mean Platelet Volume 9.7 7.5-10.5 fL Immature Granulocyte % (Auto) 3.8 H 0-1 % Neutrophils (%) (Auto) 73.7 40.0-77.0 % Lymphocytes (%) (Auto) 12.9 L 21.0-51.0 % Monocytes (%) (Auto) 8.1 3.0-13.0 % Eosinophils (%) (Auto) 1.1 0.0-8.0 % Basophils (%) (Auto) 0.4 0.0-5.0 % Neutrophils # (Auto) 7.3 1.8-7.7 K/uL Lymphocytes # (Auto) 1.3 1.0-4.8 K/uL Monocytes # (Auto) 0.8 0.1-1.0 K/uL Eosinophils # (Auto) 0.11 0.00-0.70 K/uL Basophils # (Auto) 0.04 0.00-0.20 K/uL Absolute Immature Granulocyte (auto 0.38 0-1 K/uL Nucleated Red Blood Cells 0.2 H 0.0-0.19 % Erythrocyte Sedimentation Rate 89 H 0-30 MM/HR Sodium Level 136 136-145 mmol/L Potassium Level 3.8 3.5-5.1 mmol/L Chloride Level 98 L 101-111 mmol/L Carbon Dioxide Level 29 21-32 mmol/L Blood Urea Nitrogen 7 7-18 mg/dL Creatinine 0.5 0.5-1.0 mg/dL Glomerular Filtration Rate Calc 111 >90 mL/min Random Glucose 134 H 70-105 mg/dL Total Calcium 8.3 L 8.5-10.1 mg/dL Iron Level 42 L 50-170 mcg/dL Total Iron Binding Capacity 203 L 250-450 mcg/dL Percent Iron Saturation 20.6 L 22-44 % Ferritin 3791 H 15-150 ng/mL Total Bilirubin 0.8 0.2-1.0 mg/dL Aspartate Amino Transf (AST/SGOT) 136 H 10-37 U/L Alanine Aminotransferase (ALT/SGPT) 283 H 12-78 U/L Alkaline Phosphatase 192 H 50-136 U/L Lactate Dehydrogenase 246 H 81-234 U/L C-Reactive Protein, Quantitative 135.40 H 0.5-3.0 mg/L Total Protein 6.5 6.0-8.3 g/dL Albumin 2.2 L 3.5-5.0 g/dL Procalcitonin 0.47 0.05-0.5 ng/mL Vancomycin Level Trough 9.3 L 10.0-20.0 UG/ML Hepatitis A IgM Antibody Non-Reactive Nonreactive Hepatitis B Core Total Antibody. Non-Reactive Nonreactive Hepatitis B Core IgM Antibody Non-Reactive Negative Current Medications Medications (Trade) Dose Ordered Sig/Roc Route PRN Reason Start Time Stop Time Status Last Admin Dose Admin Acetaminophen (TYLenol 325MG TAB) 650 mg Q4H PRN PO TEMPERATURE GREATER THAN 101.5 09/24/25 23:00 10/24/25 22:59 09/27/25 20:00 650 MG Amlodipine Besylate (NorvASC 5MG TAB) 10 mg DAILY PO 09/28/25 09:00 10/28/25 08:59 09/30/25 09:14 10 MG Bisacodyl (DulcoLAX 5MG TAB) 10 mg DAILY PRN PO CONSTIPATION 09/28/25 18:30 10/28/25 18:29 09/28/25 21:08 10 MG Cefazolin Sodium (ANCEF 1 gm vial) 1 gm Q8H IVPB 09/30/25 10:00 09/30/25 09:43 DC Cefazolin Sodium (Ancef) 2 gm Q8H IVPB 09/30/25 10:00 10/10/25 09:59 Cefepime HCl (MAXipime 1 GM vial) 1 gm Q12H IVPB 09/26/25 11:30 09/30/25 09:35 DC 09/29/25 22:40 1 GM Dextrose/Sodium Chloride 1,000 ml @ 50 mls/hr Q20H IV 09/24/25 16:00 09/30/25 09:33 DC 09/28/25 10:25 50 MLS/HR Home Med (Home Medication) (Liraglutide (Victoza 2-Deon) ... DAILY SQ 09/28/25 09:00 10/28/25 08:59 Hydromorphone HCl (DiLAUDid 0.5MG INJ) 0.5 mg Q6H PRN IVP SEVERE PAIN (7-10) 09/24/25 16:30 09/24/25 21:33 DC 09/24/25 16:53 0.5 MG Hydromorphone HCl (DiLAUDid 0.5MG INJ) 1 mg Q4HPRN PRN IVP SEVERE PAIN (7-10) 09/24/25 22:00 09/29/25 16:29 DC 09/27/25 23:59 0.5 MG Hydromorphone HCl (DiLAUDid 2MG TAB) 2 mg Q6H PRN PO SEVERE PAIN (7-10) 09/28/25 15:00 10/05/25 14:59 09/30/25 05:11 2 MG Lisinopril (Prinivil 40mg) 40 mg DAILY PO 09/28/25 09:00 10/28/25 08:59 09/30/25 09:14 40 MG Metformin HCl (glucoPHAGE XR) 500 mg DAILYBKFST PO 09/28/25 08:00 10/28/25 07:59 09/30/25 09:17 500 MG Morphine Sulfate (morPHINE 4MG SYG) 4 mg Q6H PRN IVP MODERATE PAIN (4-6) 09/24/25 16:00 09/29/25 18:59 DC 09/29/25 13:55 4 MG Multivitamins Therapeutic (Multivitamin Tablet) 1 tab Q24H PO 09/30/25 10:00 10/30/25 09:59 Ondansetron HCl (zoFRAN 4MG INJ) 4 mg Q6H PRN IVP NAUSEA/VOMITING 09/24/25 16:00 10/24/25 15:59 09/28/25 21:04 4 MG Pantoprazole Sodium (PROTonix 40MG INJ) 40 mg DAILY IVP 09/25/25 09:00 10/25/25 08:59 09/30/25 09:14 40 MG Pharmacy Profile Note (Pharmacy Communication) 1 each ONCE MISC 09/28/25 15:30 09/29/25 06:33 DC 09/28/25 17:18 1 EACH Pharmacy Profile Note (Pharmacy Communication) 1 each ONCE MISC 09/30/25 10:00 09/30/25 09:40 DC Polyethylene Glycol (MIRalax 3350 17 GM POWD.PACK) 17 gm DAILY PO 09/29/25 09:00 10/29/25 08:59 09/30/25 09:14 17 GM Potassium Chloride 100 ml @ 100 mls/hr AD PRN IV POTASSIUM PROTOCOL 09/28/25 15:00 10/28/25 14:59 Potassium Chloride (K-Dur/Klor-Con 20meq) 20 meq AD PRN PO POTASSIUM PROTOCOL 09/28/25 15:00 10/28/25 14:59 09/29/25 17:42 20 MEQ Potassium Chloride (KCl 10% Elixir 20meq/15ml) 20 meq AD PRN PO POTASSIUM PROTOCOL 09/28/25 15:00 10/28/25 14:59 Sodium Chloride 1,000 ml @ 75 mls/hr [id number] IV 09/30/25 09:30 10/30/25 09:29 Vancomycin HCl 250 ml @ 125 mls/hr Q12H IV 09/28/25 16:00 09/30/25 05:36 DC 09/29/25 17:45 125 MLS/HR Vancomycin HCl 250 ml @ 125 mls/hr Q12H IV 09/30/25 06:00 10/10/25 05:59 09/30/25 05:53 125 MLS/HR Vancomycin HCl (Vancomycin Protocol) 1 each AD IV 09/28/25 15:30 10/12/25 15:29 DIAGNOSTICS / RADIOLOGY: SERVICE 1200 REASON: PERSISTENT ABDOMINAL PAIN ORDERING PHYSICIAN: ADDIE ROSA PROCEDURE: MRCP WO - MRCP(ABDWO)CHOLANGIOPANCREATOG STUDY MR abdomen without IV contrast with MRCP CLINICAL HISTORY Persistent abdominal pain TECHNIQUE Multiplanar multisequence MRI of the abdomen including MRCP sequences performed without intravenous contrast CONTRAST None COMPARISON Abdominal ultrasound 09/26/[address] abdomen and pelvis without contrast 09/24/2025 FINDINGS Lower thorax Small bilateral pleural effusions are present, measuring up to approximately 1.5 cm on the right and 1.0 cm on the left in maximal thickness, with associated subpleural parenchymal scarring and dependent atelectasis at the lung bases. Liver and biliary system The liver is enlarged, measuring up to approximately 23 cm in craniocaudal dimension. Hepatic parenchyma demonstrates diffusely increased T1 and T2 signal characteristics consistent with fatty infiltration without a discrete focal hepatic mass. No intrahepatic biliary ductal dilatation is seen. The gallbladder is surgically absent. The common bile duct measures approximately 0.7 cm in diameter with smooth tapering to the ampullary region, without intraluminal filling defect on MRCP to suggest choledocholithiasis. Pancreas and spleen Pancreatic contour and signal are within normal limits without ductal dilatation or peripancreatic fluid collection. The spleen is normal in size and signal without focal lesion. Adrenals and kidneys Adrenal glands are unremarkable. Both kidneys are normal in size and morphology without hydronephrosis or focal renal mass. There is symmetric perinephric fat stranding around both kidneys, similar to prior CT, without discrete perinephric collection. Bowel and mesentery Stomach and visualized bowel loops show no evidence of obstruction or focal mural thickening on this noncontrast MRI. No free intraperitoneal fluid or loculated collection is identified. Vasculature and lymph nodes Abdominal aorta and major branches are normal in caliber without aneurysm. No pathologic abdominal or retroperitoneal lymphadenopathy is seen. Musculoskeletal There is edema along the left psoas muscle compatible with myositis or strain, concordant with prior CT. Degenerative changes at the lumbosacral junction are partially visualized, with advanced left-sided facet arthrosis at L4-L5 and L5-S1 and adjacent soft tissue edema. IMPRESSION * Hepatomegaly with diffuse hepatic steatosis; no focal hepatic lesion or biliary obstruction identified. * Status post cholecystectomy with common bile duct measuring approximately 0.7 cm and smoothly tapering to the ampulla, without MRCP evidence of choledocholithiasis. * Symmetric bilateral perinephric fat stranding without hydronephrosis or organized collection, nonspecific and unchanged from prior CT. * Left psoas muscle edema and advanced left L4-L5 and L5-S1 facet arthrosis, compatible with degenerative change and possible mechanical back or flank pain source, unchanged compared with prior CT. /[place] DICTATED BY: TUCKER ELMORE MD DATE: 09/28/25133 ELECTRONICALLY SIGNED BY: TUCKER ELMORE MD DATE: 09/28/25133 ASSESSMENT: MSSA bacteremia with Gram-positive sepsis, POA Debility, POA Acute hepatitis, stabilizing, POA Persistent nonresolving lower back pain with L4-L5, L5-S1 arthrosis, POA Hepatomegaly, POA Leukocytosis, improving, POA Underlying history of hypertension, POA Obesity, POA Hyperlipidemia, POA Type 2 diabetes mellitus, POA Left psoas muscle edema, POA PLAN: Patient will continue with admission in medical-surgical floor under telemetry monitoring Consultation with Infectious Disease will be requested We will start patient on IV hydration at NS at75 mL/hour Discussed with pharmacy, we will stop cefepime and switch to IV Ancef for management of MSSA bacteremia, we will follow up final blood cultures, we will continue with vancomycin for now We will follow up results of 2D echocardiogram, we will rule out any valvular vegetations We will obtain MRI of the lumbar and thoracic spine, we will rule out any complicating diskitis/vertebral osteomyelitis/and r/o any epidural abscess We will consider CAROLEE this admission if source of staph aureus bacteremia is unclear We will repeat labs today, we will check iron panel, we will repeat blood cultures We will see how patient progresses over the next 24-48 hours, we will monitor neurologic status closely as well We will keep patient on DVT prophylaxis with SCDs, if MRI of the lumbar and tho racic spine shows no complications, we will start pharmacologic DVT prophylaxis with Lovenox All labs will be repeated in the morning We will continue to the monitor this patient closely under hospitalist service Anticipate at least 4-6 weeks of IV antibiotics once source of bacteremia is confirmed Date of service: 09/30/2025 Prognosis: Guarded Plan of care was discussed with patient at bedside, JAMAL Diaz MD, MD Sep 30, 2025 10:53
[2025-09-30] MEDS: MULTIVITAMIN TABLET PO SCH (12:05)
[2025-09-30] MEDS: 0.9%NACL 1000ML 1,000 ML IV SCH (12:06)
--- NOTE | 2025-09-30 13:08 | PN ---
INFECTIOUS DISEASE PROGRESS NOTE Date of Service: Sep 30, 2025 SUBJECTIVE: [ ] REVIEW OF SYSTEMS CONSTITUTIONAL: Denies fever, chills, or fatigue. HEAD/FACE: No signs of trauma. EENT: Denies eye pain, blurred vision, double vision, or light sensitivity. RESPIRATORY: Denies shortness of breath, cough, wheezing CARDIOVASCULAR: Denies chest pain, palpitation, syncope GASTROINTESTINAL/ABDOMINAL: Denies abdominal pain, constipation, diarrhea, nausea or vomiting GENITOURINARY: Denies dysuria or hematuria. MUSCULOSKELETAL: Denies joint pain, tenderness, or trauma. INTEGUMENTARY: Denies rash or itchiness NEUROLOGICAL/PSYCH: Denies anxiety, depression, heat or cold intolerance. PHYSICAL EXAM EYES: Anicteric. Pupils equal and reactive. HENT: No oral thrush seen, moist Oral mucosa NECK: Supple, no JVD or thyromegaly. LUNGS: Good air entry. No rales, no rhonchi. CARDIOVASCULAR: S1, S2 regular. No murmur heard. ABDOMEN: Soft, non tender, bowel sounds present, no organomegaly CENTRAL NERVOUS SYSTEM: Awake, alert, oriented x 3. No focal deficits. SKIN: No rashes, no swelling. LYMPHATICS: No peripheral lymphadenopathy MUSCULOSKELETAL: No joint swelling, erythema or tenderness. EXTREMITIES: No cyanosis or clubbing BACK: No deformity, no pressure ulcer. GENITOURINARY: No dysuria or hematuria Vital Sign (Last 12 Hours) 09/30/25 09/30/25 09/30/25 04:06 08:00 12:00 Temp 98.4 98.1 98.2 Pulse 76 83 81 Resp 18 18 16 B/P (MAP) 133/78 135/79 148/86 Pulse Ox 96 96 95 O2 Delivery Room Air Room Air Room Air FiO2 21 Intake & Output (last 24hrs) 09/29/25 09/29/25 09/30/25 15:00 23:00 07:00 Intake Total 240 ml 740.0 ml Output Total 300 ml Balance -60 ml 740.0 ml LABS: Laboratory: Test 09/30/25 04:21 09/29/25 04:08 Range/Units White Blood Count 9.9 4.8-10.8 K/uL Red Blood Count 3.72 L 4.00-5.50 MIL/uL Hemoglobin 9.8 L 12.0-16.0 g/dL Hematocrit 30.4 L 36-48 % Mean Corpuscular Volume 81.7 79-99 fL Mean Corpuscular Hemoglobin 26.3 L 27.0-33.0 pg Mean Corpuscular Hemoglobin Concent 32.2 32.0-36.0 g/dL Red Cell Distribution Width 14.8 11.0-15.5 % Platelet Count 324 130-400 K/uL Mean Platelet Volume 9.7 7.5-10.5 fL Immature Granulocyte % (Auto) 3.8 H 0-1 % Neutrophils (%) (Auto) 73.7 40.0-77.0 % Lymphocytes (%) (Auto) 12.9 L 21.0-51.0 % Monocytes (%) (Auto) 8.1 3.0-13.0 % Eosinophils (%) (Auto) 1.1 0.0-8.0 % Basophils (%) (Auto) 0.4 0.0-5.0 % Neutrophils # (Auto) 7.3 1.8-7.7 K/uL Lymphocytes # (Auto) 1.3 1.0-4.8 K/uL Monocytes # (Auto) 0.8 0.1-1.0 K/uL Eosinophils # (Auto) 0.11 0.00-0.70 K/uL Basophils # (Auto) 0.04 0.00-0.20 K/uL Absolute Immature Granulocyte (auto 0.38 0-1 K/uL Nucleated Red Blood Cells 0.2 H 0.0-0.19 % Erythrocyte Sedimentation Rate 89 H 0-30 MM/HR Sodium Level 136 136-145 mmol/L Potassium Level 3.8 3.5-5.1 mmol/L Chloride Level 98 L 101-111 mmol/L Carbon Dioxide Level 29 21-32 mmol/L Blood Urea Nitrogen 7 7-18 mg/dL Creatinine 0.5 0.5-1.0 mg/dL Glomerular Filtration Rate Calc 111 >90 mL/min Random Glucose 134 H 70-105 mg/dL Total Calcium 8.3 L 8.5-10.1 mg/dL Iron Level 42 L 50-170 mcg/dL Total Iron Binding Capacity 203 L 250-450 mcg/dL Percent Iron Saturation 20.6 L 22-44 % Ferritin 3791 H 15-150 ng/mL Total Bilirubin 0.8 0.2-1.0 mg/dL Aspartate Amino Transf (AST/SGOT) 136 H 10-37 U/L Alanine Aminotransferase (ALT/SGPT) 283 H 12-78 U/L Alkaline Phosphatase 192 H 50-136 U/L Lactate Dehydrogenase 246 H 81-234 U/L C-Reactive Protein, Quantitative 135.40 H 0.5-3.0 mg/L Total Protein 6.5 6.0-8.3 g/dL Albumin 2.2 L 3.5-5.0 g/dL Procalcitonin 0.47 0.05-0.5 ng/mL Vancomycin Level Trough 9.3 L 10.0-20.0 UG/ML Hepatitis A IgM Antibody Non-Reactive Nonreactive Hepatitis B Core Total Antibody. Non-Reactive Nonreactive Hepatitis B Core IgM Antibody Non-Reactive Negative DIAGNOSTICS / RADIOLOGY: [ ] ASSESSMENT: Methicillin sensitive Staphylococcus aureus bacteremia. Back pain. Diabetes mellitus. PLAN: Continue cefazolin. Continue vancomycin. We will follow up on the MRI results. Continue pain management. This case was reviewed and discussed with my supervising physician Dr. Murphy and the above assessment and plan was formulated and agreed upon. ATTESTATION BY PHYSICIAN I have seen and examined the patient. I reviewed the documentation, medical decision making, and treatment plan as noted by the mid-level provider above. I agree with the findings and plan of care. YASMINE MURPHY MD, [facility] Sep 30, 2025 13:08
--- NOTE | 2025-09-30 17:16 | PN ---
GASTROENTEROLOGY PROGRESS NOTE Date of Visit: Sep 30, 2025 Time of Visit: 17:15 Events / Notes: [ VSS. Patient has WBC of 9.9, hemoglobin 9.8, platelets 324. Patient's total bilirubin normal now at 0.8, AST has decreased to 136, ALT has decreased to 283, alkaline phosphatase is at 192, LDH 246, CRP elevated at 135.4. 2.2. Patient examined at bedside she is in no acute distress. She reports feeling better. Emphasized importance she abstain from alcohol intake. Recommend she follow up at [facility] for further evaluation and treatment. Patient verbalized understanding and agreement.] Review of Systems: CONSTITUTIONAL: No malaise or change in sensation of wellbeing. ENMT: No rhinorrhea, otorrhea, sinus pain, ear ache. CARDIOVASCULAR: No angina, palpitations, orthopnea or paroxysmal dyspnea. RESPIRATORY: No SOB. GASTROINTESTINAL: No abdominal pain, nausea, vomiting, diarrhea, hematemesis, melena or change in the patient's habitual bowel movements consistency/number. GENITOURINARY: No dysuria, hematuria or change in bladder continence. MUSCULOSKELETAL: No new muscle pain or decrease in muscular strength. No new joint swelling, redness or tenderness. SKIN: No new rash. Physical Exam: GEN: Awake, alert, oriented in person, time and place, and in no acute distress. HEENT: No rhinorrhea. Oral mucosa is moist and within normal limits. CHEST: Lung auscultation revealed normal breath sounds bilaterally. CARDIAC:Heart sounds are regular. ABD: Soft, non-tender and not distended. No peritoneal signs on palpation. Normal bowel sounds. Last bm 09/30/25 EXT: No cyanosis or clubbing. No edema. SKIN: Intact. No rashes. NEURO: Alert and oriented to name, place and person.No focal motor deficits. Normal speech. Vital Signs (last 8hr) Date Time Temp Pulse Resp B/P (MAP) Pulse Ox O2 Delivery O2 Flow Rate FiO2 09/30/25 12:00 98.2 81 16 148/86 95 Room Air Laboratory: [ ] Laboratory: Test 09/30/25 04:21 09/29/25 04:08 Range/Units White Blood Count 9.9 4.8-10.8 K/uL Red Blood Count 3.72 L 4.00-5.50 MIL/uL Hemoglobin 9.8 L 12.0-16.0 g/dL Hematocrit 30.4 L 36-48 % Mean Corpuscular Volume 81.7 79-99 fL Mean Corpuscular Hemoglobin 26.3 L 27.0-33.0 pg Mean Corpuscular Hemoglobin Concent 32.2 32.0-36.0 g/dL Red Cell Distribution Width 14.8 11.0-15.5 % Platelet Count 324 130-400 K/uL Mean Platelet Volume 9.7 7.5-10.5 fL Immature Granulocyte % (Auto) 3.8 H 0-1 % Neutrophils (%) (Auto) 73.7 40.0-77.0 % Lymphocytes (%) (Auto) 12.9 L 21.0-51.0 % Monocytes (%) (Auto) 8.1 3.0-13.0 % Eosinophils (%) (Auto) 1.1 0.0-8.0 % Basophils (%) (Auto) 0.4 0.0-5.0 % Neutrophils # (Auto) 7.3 1.8-7.7 K/uL Lymphocytes # (Auto) 1.3 1.0-4.8 K/uL Monocytes # (Auto) 0.8 0.1-1.0 K/uL Eosinophils # (Auto) 0.11 0.00-0.70 K/uL Basophils # (Auto) 0.04 0.00-0.20 K/uL Absolute Immature Granulocyte (auto 0.38 0-1 K/uL Nucleated Red Blood Cells 0.2 H 0.0-0.19 % Erythrocyte Sedimentation Rate 89 H 0-30 MM/HR Sodium Level 136 136-145 mmol/L Potassium Level 3.8 3.5-5.1 mmol/L Chloride Level 98 L 101-111 mmol/L Carbon Dioxide Level 29 21-32 mmol/L Blood Urea Nitrogen 7 7-18 mg/dL Creatinine 0.5 0.5-1.0 mg/dL Glomerular Filtration Rate Calc 111 >90 mL/min Random Glucose 134 H 70-105 mg/dL Total Calcium 8.3 L 8.5-10.1 mg/dL Iron Level 42 L 50-170 mcg/dL Total Iron Binding Capacity 203 L 250-450 mcg/dL Percent Iron Saturation 20.6 L 22-44 % Ferritin 3791 H 15-150 ng/mL Total Bilirubin 0.8 0.2-1.0 mg/dL Aspartate Amino Transf (AST/SGOT) 136 H 10-37 U/L Alanine Aminotransferase (ALT/SGPT) 283 H 12-78 U/L Alkaline Phosphatase 192 H 50-136 U/L Lactate Dehydrogenase 246 H 81-234 U/L C-Reactive Protein, Quantitative 135.40 H 0.5-3.0 mg/L Total Protein 6.5 6.0-8.3 g/dL Albumin 2.2 L 3.5-5.0 g/dL Procalcitonin 0.47 0.05-0.5 ng/mL Vancomycin Level Trough 9.3 L 10.0-20.0 UG/ML Hepatitis A IgM Antibody Non-Reactive Nonreactive Hepatitis B Core Total Antibody. Non-Reactive Nonreactive Hepatitis B Core IgM Antibody Non-Reactive Negative Current Medications Medications (Trade) Dose Ordered Sig/Roc Route PRN Reason Start Time Stop Time Status Last Admin Dose Admin Acetaminophen (TYLenol 325MG TAB) 650 mg Q4H PRN PO TEMPERATURE GREATER THAN 101.5 09/24/25 23:00 10/24/25 22:59 09/27/25 20:00 650 MG Amlodipine Besylate (NorvASC 5MG TAB) 10 mg DAILY PO 09/28/25 09:00 10/28/25 08:59 09/30/25 09:14 10 MG Bisacodyl (DulcoLAX 5MG TAB) 10 mg DAILY PRN PO CONSTIPATION 09/28/25 18:30 10/28/25 18:29 09/28/25 21:08 10 MG Cefazolin Sodium (ANCEF 1 gm vial) 1 gm Q8H IVPB 09/30/25 10:00 09/30/25 09:43 DC Cefazolin Sodium (Ancef) 2 gm Q8H IVPB 09/30/25 10:00 10/10/25 09:59 09/30/25 12:06 2 GM Cefepime HCl (MAXipime 1 GM vial) 1 gm Q12H IVPB 09/26/25 11:30 09/30/25 09:35 DC 09/29/25 22:40 1 GM Dextrose/Sodium Chloride 1,000 ml @ 50 mls/hr Q20H IV 09/24/25 16:00 09/30/25 09:33 DC 09/28/25 10:25 50 MLS/HR Home Med (Home Medication) (Liraglutide (Victoza 2-Deon) ... DAILY SQ 09/28/25 09:00 10/28/25 08:59 Hydromorphone HCl (DiLAUDid 0.5MG INJ) 0.5 mg Q6H PRN IVP SEVERE PAIN (7-10) 09/24/25 16:30 09/24/25 21:33 DC 09/24/25 16:53 0.5 MG Hydromorphone HCl (DiLAUDid 0.5MG INJ) 1 mg Q4HPRN PRN IVP SEVERE PAIN (7-10) 09/24/25 22:00 09/29/25 16:29 DC 09/27/25 23:59 0.5 MG Hydromorphone HCl (DiLAUDid 2MG TAB) 2 mg Q6H PRN PO SEVERE PAIN (7-10) 09/28/25 15:00 10/05/25 14:59 09/30/25 12:05 2 MG Lisinopril (Prinivil 40mg) 40 mg DAILY PO 09/28/25 09:00 10/28/25 08:59 09/30/25 09:14 40 MG Metformin HCl (glucoPHAGE XR) 500 mg DAILYBKFST PO 09/28/25 08:00 10/28/25 07:59 09/30/25 09:17 500 MG Morphine Sulfate (morPHINE 4MG SYG) 4 mg Q6H PRN IVP MODERATE PAIN (4-6) 09/24/25 16:00 09/29/25 18:59 DC 09/29/25 13:55 4 MG Multivitamins Therapeutic (Multivitamin Tablet) 1 tab Q24H PO 09/30/25 10:00 10/30/25 09:59 09/30/25 12:05 1 TAB Ondansetron HCl (zoFRAN 4MG INJ) 4 mg Q6H PRN IVP NAUSEA/VOMITING 09/24/25 16:00 10/24/25 15:59 09/28/25 21:04 4 MG Pantoprazole Sodium (PROTonix 40MG INJ) 40 mg DAILY IVP 09/25/25 09:00 10/25/25 08:59 09/30/25 09:14 40 MG Pharmacy Profile Note (Pharmacy Communication) 1 each ONCE MISC 09/28/25 15:30 09/29/25 06:33 DC 09/28/25 17:18 1 EACH Pharmacy Profile Note (Pharmacy Communication) 1 each ONCE MISC 09/30/25 10:00 09/30/25 09:40 DC Polyethylene Glycol (MIRalax 3350 17 GM POWD.PACK) 17 gm DAILY PO 09/29/25 09:00 10/29/25 08:59 09/30/25 09:14 17 GM Potassium Chloride 100 ml @ 100 mls/hr AD PRN IV POTASSIUM PROTOCOL 09/28/25 15:00 10/28/25 14:59 Potassium Chloride (K-Dur/Klor-Con 20meq) 20 meq AD PRN PO POTASSIUM PROTOCOL 09/28/25 15:00 10/28/25 14:59 09/29/25 17:42 20 MEQ Potassium Chloride (KCl 10% Elixir 20meq/15ml) 20 meq AD PRN PO POTASSIUM PROTOCOL 09/28/25 15:00 10/28/25 14:59 Sodium Chloride 1,000 ml @ 75 mls/hr [id number] IV 09/30/25 09:30 10/30/25 09:29 09/30/25 12:06 75 MLS/HR Vancomycin HCl 250 ml @ 125 mls/hr Q12H IV 09/28/25 16:00 09/30/25 05:36 DC 09/29/25 17:45 125 MLS/HR Vancomycin HCl 250 ml @ 125 mls/hr Q12H IV 09/30/25 06:00 10/10/25 05:59 09/30/25 05:53 125 MLS/HR Vancomycin HCl (Vancomycin Protocol) 1 each AD IV 09/28/25 15:30 10/12/25 15:29 Diagnostics / Radiology: [COPY/PASTE HERE IF NO REPORTS PLEASE DELETE SECTION] Assessment: [ Abdominal pain Transaminitis Anemia ] Plan: Case discussed with Dr. Jane [No Gi endoscopic intervention recommended at this time Liver serologies ordered. Recommend patient f/u at [facility] in 1--2 weeks from discharge for further evaluation of abnormal liver enzymes. Please call with questions, concerns, and change in clinical status Thank you for this consult. ] BRIJESH DOUGHERTY Sep 30, 2025 17:16
[2025-09-30] MEDS ORDERED: GADOTERATE MEGLUMINE 10 MMOL/20 ML VIAL IV ONE (18:29)
[2025-10-01 00:01] VITALS: BP 140/84; PULSE 76; RESP 19; TEMP 98.9
--- NOTE | 2025-10-01 00:13 | HMCIMG ---
EXAM MR THORACIC SPINE WITHOUT IV CONTRAST WITH CERVICAL AND LUMBAR SCREENING CLINICAL HISTORY Staphylococcus aureus bacteremia and lower back pain to evaluate for osteomyelitis or epidural abscess. TECHNIQUE Multiplanar multisequence MR imaging of the thoracic spine was performed without intravenous contrast. Screening sagittal sequences of the cervical and lumbar spine were obtained. No post contrast sequences were acquired. COMPARISON None provided. FINDINGS Spinal cord and canal Thoracic spinal cord demonstrates normal caliber and signal without intramedullary lesion or cord edema. No thoracic epidural fluid collection or abscess is identified on this non contrast study. Thoracic spine Degenerative thoracic spondylosis with multilevel disc osteophyte complexes results in indentation of the ventral thecal sac with grade I to II central canal stenosis. No high grade thoracic canal compromise or cord compression is seen. A T9 vertebral body lipohemangioma is present on the right side with benign imaging features. No thoracic discitis osteomyelitis is identified. Cervical spine screening Loss of normal cervical lordosis with multilevel disc desiccation and anterior and posterior marginal osteophytes. Disc osteophyte complexes at C4C5, C5C6, and C6C7 indent the ventral thecal sac causing grade II central canal stenosis with cord indentation but no reported cord signal change. These findings represent multilevel cervical spondylotic canal narrowing with early extrinsic cord compression. Lumbar spine screening and L4L5 infection Transitional lumbosacral anatomy with sacralization of L5. At L4L5 there is severe infective facet arthritis on the left side with marked erosions and destruction of the articular margins and giant facet joint effusion. There is extensive periarticular enhancing soft tissue component extending into the adjacent left iliopsoas muscle with myofascial edema and early phlegmon formation. Distal disc hyperintensity and disc destruction are present at L4L5 with adjacent facet joint arthrosis and infectious arthropathy. An anterior epidural abscess and phlegmon are present in the left paramedian region extending cranially from the L4L5 level up to approximately L1 and caudally to L5 measuring approximately 6.6 x 0.6 x 1 cm with an enhancing phlegmonous component posterior to the L4 vertebral body. This results in severe central spinal canal stenosis at L4L5 graded as Schizas grade D with marked compression of the thecal sac and clumping of cauda equina nerve roots consistent with compressive cauda equina involvement. The epidural phlegmon and associated disc and facet pathology contribute to severe lateral recess stenosis and left predominant neural foraminal stenosis at L2L3, L3L4, L4L5, and L5S1 levels, most pronounced at L3L4 and L4L5 on the left. Additional lumbar degenerative changes Background degenerative lumbar spondylosis with marginal osteophytes and disc desiccation. Grade II anterior spondylolisthesis of L4 over L5 due to pars interarticularis defects consistent with isthmic spondylolisthesis and segmental instability at L4L5. Moderate facet arthrosis is present at L4L5 and L5S1 in addition to the superimposed infectious facet destruction on the left at L4L5. Thoracic and extra spinal findings Bilateral small pleural effusions are present measuring approximately 1.1 cm on the right and less than 1 cm on the left with associated compression atelectasis of the bilateral subpleural posterobasal segments and adjacent parenchymal atelectasis. No paraspinal soft tissue collection is seen in the thoracic region. IMPRESSION * Active spinal infection centered at L4L5 with severe left sided infective facet arthritis demonstrating articular surface destruction and giant facet effusion, associated discitis at L4L5 with disc destruction, and extensive periarticular soft tissue inflammation extending into the left iliopsoas muscle with myofascial edema and early phlegmon formation. * Anterior left paramedian epidural abscess and phlegmon extending from approximately L1 to L5 with an enhancing component behind the L4 vertebral body producing severe central canal stenosis at L4L5 Schizas grade D, marked thecal sac compression, clumping of cauda equina nerve roots, and severe lateral recess and left predominant neural foraminal stenosis at L2L3, L3L4, L4L5, and L5S1 levels, representing imaging evidence of compressive cauda equina involvement in the setting of spinal infection. * Underlying degenerative lumbar spondylosis with grade II anterolisthesis of L4 on L5 due to pars defects and moderate facet arthrosis at L4L5 and L5S1, contributing to mechanical instability at the same level as the infective process. * Multilevel cervical spondylotic disease with disc osteophyte complexes at C4C5, C5C6, and C6C7 causing grade II central canal stenosis and ventral cord indentation without cord signal change, consistent with early cervical myelopathic risk if clinically symptomatic. * Degenerative thoracic spondylosis with multilevel disc osteophyte complexes causing only grade I to II central canal stenosis without cord compression and benign vertebral lipohemangiomas at T9 and T1. * Small bilateral pleural effusions with basilar compression atelectasis in the setting of systemic illness. /Pedro
--- NOTE | 2025-10-01 00:13 | HMCIMG ---
STUDY MRI LUMBAR SPINE WITH AND WITHOUT CONTRAST HISTORY Staphylococcus aureus bacteremia and lower back pain to evaluate for osteomyelitis and epidural abscess. TECHNIQUE Multiplanar multisequence MRI of the lumbar spine was performed before and after intravenous contrast administration. COMPARISON None provided. FINDINGS Alignment and vertebrae Transitional lumbosacral anatomy with sacralization of L5. Grade II anterior spondylolisthesis of L4 over L5 is present with defects in the pars interarticularis compatible with isthmic spondylolisthesis and segmental instability at L4L5. Background degenerative lumbar spondylosis with marginal osteophytes and multilevel disc desiccation. No acute traumatic vertebral fracture is described. Disc spaces and endplates At L4L5 the disc shows signal alteration and destruction with distal hyperintensity consistent with discitis in this clinical context. Adjacent endplates show associated inflammatory change. Other lumbar disc levels show degenerative desiccation without described destructive change. Facet joints and posterior elements At L4L5 there is severe infective facet arthritis on the left with marked erosions and destruction of articular margins and a giant facet joint effusion. There is extensive enhancing periarticular soft tissue extending into the adjacent left iliopsoas muscle with myofascial edema and early phlegmon formation. Additional facet arthrosis is present at L4L5 and L5S1 bilaterally on a degenerative basis. Epidural space and canal An anterior left paramedian epidural abscess and phlegmon extend cranially from approximately the L4L5 level to L1 and caudally to L5, measuring up to approximately 6.6 x 0.6 x 1 cm in maximal dimensions. There is an enhancing phlegmonous component behind the L4 vertebral body. This results in severe central spinal canal stenosis at L4L5 corresponding to Schizas grade D with marked compression of the thecal sac. 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 The epidural phlegmon in combination with diffuse disc disease and facet arthrosis produces severe lateral recess narrowing and left predominant neural foraminal stenosis at L2L3, L3L4, L4L5, and L5S1, most pronounced at L3L4 and L4L5 on the left. Neural foramina and lateral recesses L4L5 severe canal stenosis is accompanied by severe left lateral recess and foraminal stenosis with likely compression of the exiting left L4 nerve root and traversing left L5 root. At L3L4 and L2L3 there is left predominant neural foraminal stenosis with exiting left nerve root compromise as part of the phlegmonous and degenerative process. Right sided foraminal narrowing is less pronounced based on the provided description. Conus medullaris and cauda equina Conus medullaris terminates at a normal level above the L1L2 disc. Cauda equina nerve roots at and below L4L5 are clumped and compressed by anterior epidural phlegmon and abscess consistent with cauda equina compression in the setting of epidural infection. Paraspinal and pelvic soft tissues Extensive enhancing periarticular and paraspinal inflammatory soft tissue is present around the left L4L5 facet joint extending into the left iliopsoas muscle with myofascial edema and early phlegmon formation, compatible with contiguous spread of infection. No discrete distant psoas abscess cavity is separately described. No other large paraspinal collection is reported. IMPRESSION * Active spinal infection centered at L4L5 with discitis and severe left sided septic facet arthritis demonstrating destructive erosions and giant facet effusion, with extensive enhancing periarticular soft tissue extending into the left iliopsoas muscle and early phlegmon formation. * Anterior left paramedian epidural abscess and phlegmon extending from approximately L1 to L5 with enhancing component behind L4 causing severe central canal stenosis at L4L5 Schizas grade D, marked thecal sac compression, clumping of cauda equina nerve roots, and severe left predominant lateral recess and neural foraminal stenosis from L2L3 through L5S1, representing imaging evidence of compressive cauda equina involvement in the setting of spinal infection. * Underlying degenerative lumbar spondylosis with grade II anterolisthesis of L4 on L5 due to pars defects and facet arthrosis at L4L5 and L5S1, contributing to mechanical instability at the same level as the infectious process. * Transitional lumbosacral anatomy with sacralization of L5 which should be accounted for during any image guided or surgical intervention planning. /[place]
[2025-10-01 04:03] VITALS: BP 130/76; PULSE 81; RESP 18; TEMP 98.6
[2025-10-01 06:03] LABS: ASPARTATE AMINOTRANSFERASE 61.0 U/L (10-37); CREATININE 0.5 mg/dL (0.5-1.0); GLOMERULAR FILTR. RATE CALC 111.0 mL/min (>90); GLUCOSE,RANDOM 144.0 mg/dL (70-105); SODIUM SERUM 135.0 mmol/L (136-145); TOTAL PROTEIN, SERUM 6.3 g/dL (6.0-8.3); UREA NITROGEN, BLOOD 5.0 mg/dL (7-18)
[2025-10-01 07:14] LABS: HEPATITIS A ANTIBODY TOTAL Negative (Negative)
[2025-10-01 08:00] VITALS: BP 143/85; PULSE 83; RESP 18; TEMP 98.2
--- NOTE | 2025-10-01 09:07 | NUR ---
Transfer TRANSFER INITIATED TO [facility] [place] [facility] SPOKE WITH [facility] FROM [facility]SFER [facility], FAXED OVER [employer]. STATED WOULD NEED TO GET ADMIN APPROVAL, PENDING CALLBACK.
--- NOTE | 2025-10-01 10:05 | PN ---
GASTROENTEROLOGY PROGRESS NOTE Date of Visit: Oct 01, 2025 Time of Visit: 10:03 Events / Notes: [ VSS. Patient has WBC of 9.9, hemoglobin 9.8, platelets 324. Patient's total bilirubin normal now at 0.8, AST has decreased to 136, ALT has decreased to 283, alkaline phosphatase is at 192, LDH 246, CRP elevated at 135.4. 2.2. Patient examined at bedside she is in no acute distress. She reports feeling better. Emphasized importance she abstain from alcohol intake. Recommend she follow up at [facility] for further evaluation and treatment. Patient verbalized understanding and agreement. 10/01/25: Patient's LFTs continue to improve today vital signs are stable. CMV IgG positive but IgM is pending, EBV IGG positive but IgM is negative. Other liver serologies are still pending. Patient follow-up at [facility] for further evaluation once discharge since the patient is being transferred to [facility] [facility] d/t epidural abscess. She agreed.] Review of Systems: CONSTITUTIONAL: No malaise or change in sensation of wellbeing. ENMT: No rhinorrhea, otorrhea, sinus pain, ear ache. CARDIOVASCULAR: No angina, palpitations, orthopnea or paroxysmal dyspnea. RESPIRATORY: No SOB. GASTROINTESTINAL: No abdominal pain, nausea, vomiting, diarrhea, hematemesis, melena or change in the patient's habitual bowel movements consistency/number. GENITOURINARY: No dysuria, hematuria or change in bladder continence. MUSCULOSKELETAL: No new muscle pain or decrease in muscular strength. No new joint swelling, redness or tenderness. SKIN: No new rash. Physical Exam: GEN: Awake, alert, oriented in person, time and place, and in no acute distress. HEENT: No rhinorrhea. Oral mucosa is moist and within normal limits. CHEST: Lung auscultation revealed normal breath sounds bilaterally. CARDIAC:Heart sounds are regular. ABD: Soft, non-tender and not distended. No peritoneal signs on palpation. Normal bowel sounds. Last bm 09/30/25 EXT: No cyanosis or clubbing. No edema. SKIN: Intact. No rashes. NEURO: Alert and oriented to name, place and person.No focal motor deficits. Normal speech. Vital Signs (last 8hr) Date Time Temp Pulse Resp B/P (MAP) Pulse Ox O2 Delivery O2 Flow Rate FiO2 10/01/25 08:00 98.2 83 18 143/85 95 Room Air 10/01/25 04:03 98.6 81 18 130/76 96 Room Air 21 Laboratory: [ ] Laboratory: Test 10/01/25 05:33 09/30/25 04:21 Range/Units Sodium Level 135 L 136-145 mmol/L Potassium Level 3.2 L 3.5-5.1 mmol/L Chloride Level 98 L 101-111 mmol/L Carbon Dioxide Level 29 21-32 mmol/L Blood Urea Nitrogen 5 L 7-18 mg/dL Creatinine 0.5 0.5-1.0 mg/dL Glomerular Filtration Rate Calc 111 >90 mL/min Random Glucose 144 H 70-105 mg/dL Total Calcium 8.0 L 8.5-10.1 mg/dL Total Bilirubin 0.5 0.2-1.0 mg/dL Aspartate Amino Transf (AST/SGOT) 61 H 10-37 U/L Alanine Aminotransferase (ALT/SGPT) 196 H 12-78 U/L Alkaline Phosphatase 169 H 50-136 U/L Total Protein 6.3 6.0-8.3 g/dL Albumin 2.1 L 3.5-5.0 g/dL White Blood Count 9.9 4.8-10.8 K/uL Red Blood Count 3.72 L 4.00-5.50 MIL/uL Hemoglobin 9.8 L 12.0-16.0 g/dL Hematocrit 30.4 L 36-48 % Mean Corpuscular Volume 81.7 79-99 fL Mean Corpuscular Hemoglobin 26.3 L 27.0-33.0 pg Mean Corpuscular Hemoglobin Concent 32.2 32.0-36.0 g/dL Red Cell Distribution Width 14.8 11.0-15.5 % Platelet Count 324 130-400 K/uL Mean Platelet Volume 9.7 7.5-10.5 fL Immature Granulocyte % (Auto) 3.8 H 0-1 % Neutrophils (%) (Auto) 73.7 40.0-77.0 % Lymphocytes (%) (Auto) 12.9 L 21.0-51.0 % Monocytes (%) (Auto) 8.1 3.0-13.0 % Eosinophils (%) (Auto) 1.1 0.0-8.0 % Basophils (%) (Auto) 0.4 0.0-5.0 % Neutrophils # (Auto) 7.3 1.8-7.7 K/uL Lymphocytes # (Auto) 1.3 1.0-4.8 K/uL Monocytes # (Auto) 0.8 0.1-1.0 K/uL Eosinophils # (Auto) 0.11 0.00-0.70 K/uL Basophils # (Auto) 0.04 0.00-0.20 K/uL Absolute Immature Granulocyte (auto 0.38 0-1 K/uL Nucleated Red Blood Cells 0.2 H 0.0-0.19 % Erythrocyte Sedimentation Rate 89 H 0-30 MM/HR Iron Level 42 L 50-170 mcg/dL Total Iron Binding Capacity 203 L 250-450 mcg/dL Percent Iron Saturation 20.6 L 22-44 % Ferritin 3791 H 15-150 ng/mL Lactate Dehydrogenase 246 H 81-234 U/L C-Reactive Protein, Quantitative 135.40 H 0.5-3.0 mg/L Procalcitonin 0.47 0.05-0.5 ng/mL Vancomycin Level Trough 9.3 L 10.0-20.0 UG/ML Cytomegalovirus IgG Antibody 5.40 H 0.00-0.59 U/mL [place] Virus IgG Ab Titer 579.0 H 0.0-17.9 U/mL [place] Virus Capsid Ag IgG Ab 292.0 H 0.0-17.9 U/mL [place] Virus Capsid Ag IgM Ab <36.0 0.0-35.9 U/mL [place] Virus Interpretation Comment . Hepatitis A Antibody Total Negative Negative Current Medications Medications (Trade) Dose Ordered Sig/Roc Route PRN Reason Start Time Stop Time Status Last Admin Dose Admin Acetaminophen (TYLenol 325MG TAB) 650 mg Q4H PRN PO TEMPERATURE GREATER THAN 101.5 09/24/25 23:00 10/24/25 22:59 09/27/25 20:00 650 MG Amlodipine Besylate (NorvASC 5MG TAB) 10 mg DAILY PO 09/28/25 09:00 10/28/25 08:59 09/30/25 09:14 10 MG Bisacodyl (DulcoLAX 5MG TAB) 10 mg DAILY PRN PO CONSTIPATION 09/28/25 18:30 10/28/25 18:29 10/01/25 02:39 10 MG Cefazolin Sodium (ANCEF 1 gm vial) 1 gm Q8H IVPB 09/30/25 10:00 09/30/25 09:43 DC Cefazolin Sodium (Ancef) 2 gm Q8H IVPB 09/30/25 10:00 10/10/25 09:59 10/01/25 01:29 2 GM Cefepime HCl (MAXipime 1 GM vial) 1 gm Q12H IVPB 09/26/25 11:30 09/30/25 09:35 DC 09/29/25 22:40 1 GM Dextrose/Sodium Chloride 1,000 ml @ 50 mls/hr Q20H IV 09/24/25 16:00 09/30/25 09:33 DC 09/28/25 10:25 50 MLS/HR Home Med (Home Medication) (Liraglutide (Victoza 2-Deon) ... DAILY SQ 09/28/25 09:00 10/28/25 08:59 Hydromorphone HCl (DiLAUDid 0.5MG INJ) 0.5 mg Q6H PRN IVP SEVERE PAIN (7-10) 09/24/25 16:30 09/24/25 21:33 DC 09/24/25 16:53 0.5 MG Hydromorphone HCl (DiLAUDid 0.5MG INJ) 1 mg Q4HPRN PRN IVP SEVERE PAIN (7-10) 09/24/25 22:00 09/29/25 16:29 DC 09/27/25 23:59 0.5 MG Hydromorphone HCl (DiLAUDid 2MG TAB) 2 mg Q6H PRN PO SEVERE PAIN (7-10) 09/28/25 15:00 10/05/25 14:59 10/01/25 02:39 2 MG Lisinopril (Prinivil 40mg) 40 mg DAILY PO 09/28/25 09:00 10/28/25 08:59 09/30/25 09:14 40 MG Metformin HCl (glucoPHAGE XR) 500 mg DAILYBKFST PO 09/28/25 08:00 10/28/25 07:59 09/30/25 09:17 500 MG Morphine Sulfate (morPHINE 4MG SYG) 4 mg Q6H PRN IVP MODERATE PAIN (4-6) 09/24/25 16:00 09/29/25 18:59 DC 09/29/25 13:55 4 MG Multivitamins Therapeutic (Multivitamin Tablet) 1 tab Q24H PO 09/30/25 10:00 10/30/25 09:59 09/30/25 12:05 1 TAB Ondansetron HCl (zoFRAN 4MG INJ) 4 mg Q6H PRN IVP NAUSEA/VOMITING 09/24/25 16:00 10/24/25 15:59 09/28/25 21:04 4 MG Pantoprazole Sodium (PROTonix 40MG INJ) 40 mg DAILY IVP 09/25/25 09:00 10/25/25 08:59 09/30/25 09:14 40 MG Pharmacy Profile Note (Pharmacy Communication) 1 each ONCE MISC 09/28/25 15:30 09/29/25 06:33 DC 09/28/25 17:18 1 EACH Pharmacy Profile Note (Pharmacy Communication) 1 each ONCE MISC 09/30/25 10:00 09/30/25 09:40 DC Polyethylene Glycol (MIRalax 3350 17 GM POWD.PACK) 17 gm DAILY PO 09/29/25 09:00 10/29/25 08:59 09/30/25 09:14 17 GM Potassium Chloride 100 ml @ 100 mls/hr AD PRN IV POTASSIUM PROTOCOL 09/28/25 15:00 10/28/25 14:59 Potassium Chloride (K-Dur/Klor-Con 20meq) 20 meq AD PRN PO POTASSIUM PROTOCOL 09/28/25 15:00 10/28/25 14:59 10/01/25 07:06 20 MEQ Potassium Chloride (KCl 10% Elixir 20meq/15ml) 20 meq AD PRN PO POTASSIUM PROTOCOL 09/28/25 15:00 10/28/25 14:59 Sodium Chloride 1,000 ml @ 75 mls/hr [id number] IV 09/30/25 09:30 10/30/25 09:29 09/30/25 20:36 75 MLS/HR Vancomycin HCl 250 ml @ 125 mls/hr Q12H IV 09/28/25 16:00 09/30/25 05:36 DC 09/29/25 17:45 125 MLS/HR Vancomycin HCl 250 ml @ 125 mls/hr Q12H IV 09/30/25 06:00 10/10/25 05:59 10/01/25 06:34 125 MLS/HR Vancomycin HCl (Vancomycin Protocol) 1 each AD IV 09/28/25 15:30 10/12/25 15:29 Diagnostics / Radiology: [COPY/PASTE HERE IF NO REPORTS PLEASE DELETE SECTION] Assessment: [ Abdominal pain Transaminitis Anemia ] Plan: Case discussed with Dr. Jane [No Gi endoscopic intervention recommended at this time Liver serologies ordered. Recommend patient f/u at [facility] in 1--2 weeks from discharge for further evaluation of abnormal liver enzymes. Please call with questions, concerns, and change in clinical status Thank you for this consult. ] BRIJESH DOUGHERTY Oct 01, 2025 10:05
[2025-10-01 11:00] VITALS: O2SAT 95
[2025-10-01 12:00] VITALS: BP 144/85; PULSE 81; RESP 18; TEMP 98
--- NOTE | 2025-10-01 12:08 | PN ---
[facility] PROGRESS NOTE Date of Service: Oct 01, 2025 Time of Service: 12:04 SUBJECTIVE: 55-year-old female history of obesity, history of hypertension, hyperlipidemia, type 2 diabetes mellitus, who is currently admitted after she was found to have abdominal pain, back pain, she was found to have significant hepatitis as well. Patient was found to have positive blood cultures and I discussed with lab today, preliminarily, it is showing MSSA, pansensitive staph aureus. Patient reports that when she came in on the , she was having significant lower abdominal and lower back pain which was severe in intensity. She has been seen in the ER in [facility] earlier 2-3 times already and was diagnosed with muscle strain and sciatica. She has been feeling sick since earlier this September. She denies having any orthopedic hardware. She reports that lower back pain is [id number] in intensity and is improving. She is ambulating in the room. She denies any urinary or fecal incontinence. She denies any focal weakness of upper or lower extremities. Patient seen and examined at bedside. Continues to report lower back pain, cu rrently controlled with analgesics. Denies bowel or bladder incontinence. Denies focal weakness, numbness, or saddle anesthesia at this time. Ambulating with assistance. No fevers or chills reported overnight. REVIEW OF SYSTEMS CONSTITUTIONAL: Denies fevers, chills, or night sweats. No unintentional weight loss reported. NEUROLOGICAL: Denies headache, amaurosis fugax, motor weakness, sensory deficit, vertigo/spinning sensation, gait abnormalities, or tremors. Reports Having lower back pain ENT: No hearing loss, otalgia, otorrhea, rhinitis, rhinorrhea, hoarseness, or sore throat. CARDIOVASCULAR: Denies any exertional angina, dyspnea on exertion, orthopnea, paroxysmal nocturnal dyspnea, palpitations, life-threatening arrhythmias, claudication. PULMONARY: Denies any shortness of breath, cough, phlegm/sputum, hemoptysis, pleuritic chest pain. SLEEP: Denies morning headaches, daytime somnolence or napping. Denies difficulty falling asleep, staying asleep, waking from sleep. Denies knowledge of snoring. GASTROINTESTINAL: Denies any type of dysphagia to either liquids or solids. Denies nausea, vomiting, pyrosis, early satiety, abdominal pain, diarrhea, constipation, or changes in stool consistency or caliber. Denies coffee-ground emesis, hematemesis, hematochezia, or melanotic stools. GENITOURINARY: Denies frequency, urgency, nocturia, hematuria or incontinence (Storage/Irritative symptoms.) Low urinary stream, straining to void, urinary intermittency or hesitancy, splitting of the voiding stream, terminal dribbling. ENDOCRINOLOGIC: Denies polyuria, polydipsia, polyphagia or heat/cold intolerances. HEMATOLOGIC: Denies thrombophilia/previous clots, or coagulopathy/bleeding disorders. ONCOLOGIC: Denies personal history of malignancy. DERMATOLOGIC: Denies rashes or pruritus. PSYCHIATRIC: Denies any suicidal or homicidal ideation. Denies hallucinations. PHYSICAL EXAM GENERAL APPEARANCE: The patient is awake, alert, and oriented, in no acute cardiopulmonary distress. NEUROLOGICAL: Cranial nerves II-XII grossly intact. Motor is 5/5 in bilateral upper and lower extremities proximal to distal. No sensory deficits. HEENT: Face is symmetric. Pupils are equal and reactive. Extraocular movements are intact. NECK: Supple. No JVD. No thyromegaly. No submental, submandibular, pre- /postauricular, occipital or supraclavicular lymphadenopathy. CHEST: Normal chest expansion. No Telemetry. LUNGS: Absence of any rales, rhonchi or any wheezing. CARDIOVASCULAR: Regular. S1 and S2 normal. No appreciable rubs, murmurs or gallops. ABDOMEN: Soft, nontender, and nondistended. There is no rebound, voluntary guarding, or rigidity. : Deferred. No Cavanaugh. EXTREMITIES: Non-edematous and not cyanotic. No clubbing. Good capillary refill. SKIN: No skin breakdown. Vital Signs (last 8hr) Date Time Temp Pulse Resp B/P (MAP) Pulse Ox O2 Delivery O2 Flow Rate FiO2 10/01/25 08:00 98.2 83 18 143/85 95 Room Air LABS: Laboratory: Test 10/01/25 05:33 09/30/25 04:21 Range/Units Sodium Level 135 L 136-145 mmol/L Potassium Level 3.2 L 3.5-5.1 mmol/L Chloride Level 98 L 101-111 mmol/L Carbon Dioxide Level 29 21-32 mmol/L Blood Urea Nitrogen 5 L 7-18 mg/dL Creatinine 0.5 0.5-1.0 mg/dL Glomerular Filtration Rate Calc 111 >90 mL/min Random Glucose 144 H 70-105 mg/dL Total Calcium 8.0 L 8.5-10.1 mg/dL Total Bilirubin 0.5 0.2-1.0 mg/dL Aspartate Amino Transf (AST/SGOT) 61 H 10-37 U/L Alanine Aminotransferase (ALT/SGPT) 196 H 12-78 U/L Alkaline Phosphatase 169 H 50-136 U/L Total Protein 6.3 6.0-8.3 g/dL Albumin 2.1 L 3.5-5.0 g/dL White Blood Count 9.9 4.8-10.8 K/uL Red Blood Count 3.72 L 4.00-5.50 MIL/uL Hemoglobin 9.8 L 12.0-16.0 g/dL Hematocrit 30.4 L 36-48 % Mean Corpuscular Volume 81.7 79-99 fL Mean Corpuscular Hemoglobin 26.3 L 27.0-33.0 pg Mean Corpuscular Hemoglobin Concent 32.2 32.0-36.0 g/dL Red Cell Distribution Width 14.8 11.0-15.5 % Platelet Count 324 130-400 K/uL Mean Platelet Volume 9.7 7.5-10.5 fL Immature Granulocyte % (Auto) 3.8 H 0-1 % Neutrophils (%) (Auto) 73.7 40.0-77.0 % Lymphocytes (%) (Auto) 12.9 L 21.0-51.0 % Monocytes (%) (Auto) 8.1 3.0-13.0 % Eosinophils (%) (Auto) 1.1 0.0-8.0 % Basophils (%) (Auto) 0.4 0.0-5.0 % Neutrophils # (Auto) 7.3 1.8-7.7 K/uL Lymphocytes # (Auto) 1.3 1.0-4.8 K/uL Monocytes # (Auto) 0.8 0.1-1.0 K/uL Eosinophils # (Auto) 0.11 0.00-0.70 K/uL Basophils # (Auto) 0.04 0.00-0.20 K/uL Absolute Immature Granulocyte (auto 0.38 0-1 K/uL Nucleated Red Blood Cells 0.2 H 0.0-0.19 % Erythrocyte Sedimentation Rate 89 H 0-30 MM/HR Iron Level 42 L 50-170 mcg/dL Total Iron Binding Capacity 203 L 250-450 mcg/dL Percent Iron Saturation 20.6 L 22-44 % Ferritin 3791 H 15-150 ng/mL Lactate Dehydrogenase 246 H 81-234 U/L C-Reactive Protein, Quantitative 135.40 H 0.5-3.0 mg/L Procalcitonin 0.47 0.05-0.5 ng/mL Vancomycin Level Trough 9.3 L 10.0-20.0 UG/ML Cytomegalovirus IgG Antibody 5.40 H 0.00-0.59 U/mL [place] Virus IgG Ab Titer 579.0 H 0.0-17.9 U/mL [place] Virus Capsid Ag IgG Ab 292.0 H 0.0-17.9 U/mL [place] Virus Capsid Ag IgM Ab <36.0 0.0-35.9 U/mL [place] Virus Interpretation Comment . Hepatitis A Antibody Total Negative Negative Current Medications Medications (Trade) Dose Ordered Sig/Roc Route PRN Reason Start Time Stop Time Status Last Admin Dose Admin Acetaminophen (TYLenol 325MG TAB) 650 mg Q4H PRN PO TEMPERATURE GREATER THAN 101.5 09/24/25 23:00 10/24/25 22:59 09/27/25 20:00 650 MG Amlodipine Besylate (NorvASC 5MG TAB) 10 mg DAILY PO 09/28/25 09:00 10/28/25 08:59 10/01/25 10:59 10 MG Bisacodyl (DulcoLAX 5MG TAB) 10 mg DAILY PRN PO CONSTIPATION 09/28/25 18:30 10/28/25 18:29 10/01/25 02:39 10 MG Cefazolin Sodium (ANCEF 1 gm vial) 1 gm Q8H IVPB 09/30/25 10:00 09/30/25 09:43 DC Cefazolin Sodium (Ancef) 2 gm Q8H IVPB 09/30/25 10:00 10/10/25 09:59 10/01/25 10:59 2 GM Cefepime HCl (MAXipime 1 GM vial) 1 gm Q12H IVPB 09/26/25 11:30 09/30/25 09:35 DC 09/29/25 22:40 1 GM Dextrose/Sodium Chloride 1,000 ml @ 50 mls/hr Q20H IV 09/24/25 16:00 09/30/25 09:33 DC 09/28/25 10:25 50 MLS/HR Home Med (Home Medication) (Liraglutide (Victoza 2-Deon) ... DAILY SQ 09/28/25 09:00 10/28/25 08:59 Hydromorphone HCl (DiLAUDid 0.5MG INJ) 0.5 mg Q6H PRN IVP SEVERE PAIN (7-10) 09/24/25 16:30 09/24/25 21:33 DC 09/24/25 16:53 0.5 MG Hydromorphone HCl (DiLAUDid 0.5MG INJ) 1 mg Q4HPRN PRN IVP SEVERE PAIN (7-10) 09/24/25 22:00 09/29/25 16:29 DC 09/27/25 23:59 0.5 MG Hydromorphone HCl (DiLAUDid 2MG TAB) 2 mg Q6H PRN PO SEVERE PAIN (7-10) 09/28/25 15:00 10/05/25 14:59 10/01/25 11:00 2 MG Lisinopril (Prinivil 40mg) 40 mg DAILY PO 09/28/25 09:00 10/28/25 08:59 10/01/25 10:58 40 MG Metformin HCl (glucoPHAGE XR) 500 mg DAILYBKFST PO 09/28/25 08:00 10/28/25 07:59 10/01/25 10:58 500 MG Morphine Sulfate (morPHINE 4MG SYG) 4 mg Q6H PRN IVP MODERATE PAIN (4-6) 09/24/25 16:00 09/29/25 18:59 DC 09/29/25 13:55 4 MG Multivitamins Therapeutic (Multivitamin Tablet) 1 tab Q24H PO 09/30/25 10:00 10/30/25 09:59 10/01/25 10:58 1 TAB Ondansetron HCl (zoFRAN 4MG INJ) 4 mg Q6H PRN IVP NAUSEA/VOMITING 09/24/25 16:00 10/24/25 15:59 09/28/25 21:04 4 MG Pantoprazole Sodium (PROTonix 40MG INJ) 40 mg DAILY IVP 09/25/25 09:00 10/25/25 08:59 10/01/25 10:59 40 MG Pharmacy Profile Note (Pharmacy Communication) 1 each ONCE MISC 09/28/25 15:30 09/29/25 06:33 DC 09/28/25 17:18 1 EACH Pharmacy Profile Note (Pharmacy Communication) 1 each ONCE MISC 09/30/25 10:00 09/30/25 09:40 DC Polyethylene Glycol (MIRalax 3350 17 GM POWD.PACK) 17 gm DAILY PO 09/29/25 09:00 10/29/25 08:59 10/01/25 09:00 17 GM Potassium Chloride 100 ml @ 100 mls/hr AD PRN IV POTASSIUM PROTOCOL 09/28/25 15:00 10/28/25 14:59 Potassium Chloride (K-Dur/Klor-Con 20meq) 20 meq AD PRN PO POTASSIUM PROTOCOL 09/28/25 15:00 10/28/25 14:59 10/01/25 07:06 20 MEQ Potassium Chloride (KCl 10% Elixir 20meq/15ml) 20 meq AD PRN PO POTASSIUM PROTOCOL 09/28/25 15:00 10/28/25 14:59 Sodium Chloride 1,000 ml @ 75 mls/hr [id number] IV 09/30/25 09:30 10/30/25 09:29 09/30/25 20:36 75 MLS/HR Vancomycin HCl 250 ml @ 125 mls/hr Q12H IV 09/28/25 16:00 09/30/25 05:36 DC 09/29/25 17:45 125 MLS/HR Vancomycin HCl 250 ml @ 125 mls/hr Q12H IV 09/30/25 06:00 10/10/25 05:59 10/01/25 06:34 125 MLS/HR Vancomycin HCl (Vancomycin Protocol) 1 each AD IV 09/28/25 15:30 10/12/25 15:29 DIAGNOSTICS / RADIOLOGY: [MRI Thoracic Spine (screening): No thoracic discitis, osteomyelitis, or epidural abscess. Degenerative thoracic spondylosis only. MRI Lumbar Spine w/wo contrast: Active spinal infection centered at L4L5 with discitis, severe left?sided septic facet arthritis with destructive changes and giant facet effusion. Extensive periarticular inflammatory soft tissue extending into the left iliopsoas muscle with early phlegmon formation. Anterior left paramedian epidural abscess and phlegmon extending from approximately L1L5, measuring up to 6.6 cm, causing severe central canal stenosis at L4L5 (Schizas grade D) with marked thecal sac compression and clumping of cauda equina nerve roots, consistent with compressive cauda equina involvement. Background grade II anterolisthesis of L4 on L5 with segmental instability. 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 Discontinue vancomycin once MSSA coverage confirmed and per ID guidance. Maintain strict neurologic monitoring with frequent neuro checks given high risk for neurologic deterioration. Pain control as needed while avoiding oversedation. Blood cultures to be trended until clearance documented. Given MRI evidence of extensive epidural abscess with severe spinal canal stenosis and compressive cauda equina involvement, the patient requires urgent neurology and neurosurgical evaluation and potential surgical decompression and drainage. [facility] does not have in-house Neurology or Neurosurgery services. Due to the high risk of acute neurologic compromise, paralysis, bowel/bladder dysfunction, and need for advanced surgical intervention, the patient requires transfer to a higher level of care. Plan to transfer patient to [facility] for urgent Neurology and Neurosurgery consultation and definitive management. Continue DVT prophylaxis with SCDs; hold pharmacologic prophylaxis pending neurosurgical evaluation. Patient and family updated regarding MRI findings, severity of infection, and need for transfer; they verbalize understanding and agreement. Prognosis: Guarded Plan of care was discussed with patient at bedside, seen patient with Dr Lamb in room 415 ATTESTATION BY PHYSICIAN I have seen and examined the patient. I reviewed the documentation, medical decision making, and treatment plan as noted by the mid-level provider above. I agree with the findings and plan of care. Destinee Lamb MD, [facility] Oct 01, 2025 12:08
--- NOTE | 2025-10-01 12:12 | DS ---
Discharge Summary Hospital Course Summary: REASON FOR TRANSFER Patient requires urgent Neurology and Neurosurgery evaluation and possible surgical intervention for extensive spinal infection with epidural abscess causing severe central canal stenosis and radiographic evidence of compressive cauda equina involvement. These specialty services are not available in-house at [facility]. BRIEF HISTORY OF PRESENT ILLNESS 55-year-old female with history of obesity, hypertension, hyperlipidemia, and type 2 diabetes mellitus admitted on 09/24/25 with abdominal and lower back pain and systemic illness. Blood cultures grew methicillin-sensitive Staphylococcus aureus (MSSA). Despite antimicrobial therapy, advanced imaging demonstrated metastatic spinal infection with epidural abscess and severe spinal canal compromise. Given the extent of infection, mechanical instability, and high risk for neurologic deterioration, transfer to a higher level of care is indicated. PERTINENT DIAGNOSTIC STUDIES MRI Lumbar Spine with and without contrast (09/30/25): Active L4L5 discitis and vertebral osteomyelitis Severe left-sided septic facet arthritis at L4L5 with destructive erosions and giant facet effusion Extensive periarticular and paraspinal inflammatory soft tissue extending into the left iliopsoas muscle with early phlegmon formation Anterior left paramedian epidural abscess and phlegmon extending from approximately L1L5 (up to 6.6 cm) Severe central canal stenosis at L4L5 (Schizas grade D) with marked thecal sac compression and clumping of cauda equina nerve roots, consistent with compressive cauda equina involvement Grade II anterolisthesis of L4 on L5 with pars defects and segmental instability MRI Thoracic Spine: No thoracic discitis, osteomyelitis, or epidural abscess Degenerative thoracic spondylosis only CURRENT CLINICAL STATUS AT TRANSFER Hemodynamically stable and afebrile Neurologically intact on exam at present (5/5 strength, no bowel or bladder incontinence) Persistent lumbar pain High risk for acute neurologic decline due to severe epidural compression and infection Patient has extensive spinal infection complicated by a long-segment epidural abscess with severe spinal canal stenosis and radiographic evidence of cauda equina compression, placing her at imminent risk for irreversible neurologic injury including paralysis and bowel/bladder dysfunction. Management requires urgent Neurology and Neurosurgery consultation with consideration for surgical decompression, abscess drainage, and stabilization, which cannot be provided at the current facility. Transfer to [facility] is medically necessary for definitive care. 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[employer] Assessment/Plan: ACTIVE PROBLEMS MSSA bacteremia with hematogenous spread L4L5 discitis and vertebral osteomyelitis Extensive epidural abscess and phlegmon (L1L5) with severe canal stenosis and compressive cauda equina involvement Septic facet arthritis with destructive changes at L4L5 Left iliopsoas myositis/phlegmon from contiguous spread Degenerative lumbar spondylosis with grade II L4L5 anterolisthesis and mechanical instability Acute hepatitis, improving Anemia of inflammation Type 2 diabetes mellitus Hypertension Obesity TREATMENTS TO DATE IV Cefazolin for MSSA bacteremia per Infectious Disease recommendations Vancomycin discontinued after MSSA confirmed Pain control with opioid and non?opioid regimen Serial blood cultures obtained Close neurologic monitoring Discharge Instructions: CONDITION AT TRANSFER Stable, guarded prognosis Home Medications: Reported Medications Atorvastatin Calcium (LIPITOR) 10 Mg Tab, 1 TAB PO HS for 30 Days, #30 TAB 0 Refills 09/24/25 Liraglutide (Victoza 2-Deon) 0.6 Mg/0.1 Ml (18 Mg/3 Ml) Pen.injctr, 0.6 MG SQ DAILY 09/24/25 Lisinopril (Lisinopril) 40 Mg Tablet, 1 TAB PO DAILY for 30 Days, #30 TAB 0 Refills 09/24/25 Amlodipine Besylate (Amlodipine Besylate) 10 Mg Tablet, 1 TAB PO DAILY for 30 Days, #30 TAB 0 Refills 09/24/25 Metformin HCl (Metformin HCl ER) 500 Mg Tab.er.24, 1 TAB PO DAILY for 30 Days, #30 TAB 0 Refills 09/24/25 Discontinued Scripts Erythromycin Base (Erythromycin) 1 Gm Oint...g., 1 GM OP QID for eye infection for 7 Days, #1 TUBE Prov:MELODIE RENNER 07/31/22 Time spent arranging discharge: 31-60 minutes ATTESTATION BY PHYSICIAN I have seen and examined the patient. I reviewed the documentation, medical de cision making, and treatment plan as noted by the mid-level provider above. I agree with the findings and plan of care. Destinee Lamb MD, [facility] Oct 01, 2025 12:12
--- NOTE | 2025-10-01 12:30 | NUR ---
TRANSFER [facility] UPDATE RECEIVED CALL FROM [facility], SHE STATED PATIENT WAS DENIED DUE TO FINANCIALS. PRIMARY FLOOR NURSE INFROMED.
[2025-10-01] MEDS ORDERED: COMPOUND IV MISC 1 EACH IVSOLN MISC PRN (13:30)
--- NOTE | 2025-10-01 14:20 | NUR ---
PATIENT LEFT AMA. INFORMED PRIMARY DR. CLARITZA MOURA FO THE PATIENT DESIRE TO LEAVE AMA. I DID ADVISED PATIENT OF THE RISK OF LEAVING AMA AND PATIENT STATED SHE UNDERSTOOD THE RISK AND WOULD SEEK MEDICAL ADVISE IF SHE STARTED TO FEEL SICK. REMOVED PATIENTS IV WITH CATHETER INTACT. PATIENT WALKED OUT ON HR OWN WITH O S/S OR DISTRESS.
--- NOTE | 2025-10-01 19:00 | PN ---
INFECTIOUS DISEASE PROGRESS NOTE Date of Service: Oct 01, 2025 SUBJECTIVE: Patient left against medical advice PHYSICAL EXAM EYES: Anicteric. Pupils equal and reactive. HENT: No oral thrush seen, moist Oral mucosa NECK: Supple, no JVD or thyromegaly. LUNGS: Good air entry. No rales, no rhonchi. CARDIOVASCULAR: S1, S2 regular. No murmur heard. ABDOMEN: Soft, non tender, bowel sounds present, no organomegaly CENTRAL NERVOUS SYSTEM: Awake, alert, oriented x 3. No focal deficits. SKIN: No rashes, no swelling. LYMPHATICS: No peripheral lymphadenopathy MUSCULOSKELETAL: No joint swelling, erythema or tenderness. EXTREMITIES: No cyanosis or clubbing BACK: No deformity, no pressure ulcer. GENITOURINARY: No dysuria or hematuria Vital Sign (Last 12 Hours) 10/01/25 10/01/25 10/01/25 08:00 11:00 12:00 Temp 98.2 98.1 Pulse 83 81 Resp 18 18 B/P (MAP) 143/85 144/85 Pulse Ox 95 95 100 O2 Delivery Room Air Room Air* Room Air O2 Flow Rate 0 FiO2 21 Intake & Output (last 24hrs) 09/30/25 09/30/25 10/01/25 15:00 23:00 07:00 Intake Total 1195.0 ml Balance 1195.0 ml LABS: Laboratory: Test 10/01/25 05:33 09/30/25 04:21 Range/Units Sodium Level 135 L 136-145 mmol/L Potassium Level 3.2 L 3.5-5.1 mmol/L Chloride Level 98 L 101-111 mmol/L Carbon Dioxide Level 29 21-32 mmol/L Blood Urea Nitrogen 5 L 7-18 mg/dL Creatinine 0.5 0.5-1.0 mg/dL Glomerular Filtration Rate Calc 111 >90 mL/min Random Glucose 144 H 70-105 mg/dL Total Calcium 8.0 L 8.5-10.1 mg/dL Total Bilirubin 0.5 0.2-1.0 mg/dL Aspartate Amino Transf (AST/SGOT) 61 H 10-37 U/L Alanine Aminotransferase (ALT/SGPT) 196 H 12-78 U/L Alkaline Phosphatase 169 H 50-136 U/L Total Protein 6.3 6.0-8.3 g/dL Albumin 2.1 L 3.5-5.0 g/dL White Blood Count 9.9 4.8-10.8 K/uL Red Blood Count 3.72 L 4.00-5.50 MIL/uL Hemoglobin 9.8 L 12.0-16.0 g/dL Hematocrit 30.4 L 36-48 % Mean Corpuscular Volume 81.7 79-99 fL Mean Corpuscular Hemoglobin 26.3 L 27.0-33.0 pg Mean Corpuscular Hemoglobin Concent 32.2 32.0-36.0 g/dL Red Cell Distribution Width 14.8 11.0-15.5 % Platelet Count 324 130-400 K/uL Mean Platelet Volume 9.7 7.5-10.5 fL Immature Granulocyte % (Auto) 3.8 H 0-1 % Neutrophils (%) (Auto) 73.7 40.0-77.0 % Lymphocytes (%) (Auto) 12.9 L 21.0-51.0 % Monocytes (%) (Auto) 8.1 3.0-13.0 % Eosinophils (%) (Auto) 1.1 0.0-8.0 % Basophils (%) (Auto) 0.4 0.0-5.0 % Neutrophils # (Auto) 7.3 1.8-7.7 K/uL Lymphocytes # (Auto) 1.3 1.0-4.8 K/uL Monocytes # (Auto) 0.8 0.1-1.0 K/uL Eosinophils # (Auto) 0.11 0.00-0.70 K/uL Basophils # (Auto) 0.04 0.00-0.20 K/uL Absolute Immature Granulocyte (auto 0.38 0-1 K/uL Nucleated Red Blood Cells 0.2 H 0.0-0.19 % Erythrocyte Sedimentation Rate 89 H 0-30 MM/HR Iron Level 42 L 50-170 mcg/dL Total Iron Binding Capacity 203 L 250-450 mcg/dL Percent Iron Saturation 20.6 L 22-44 % Ferritin 3791 H 15-150 ng/mL Lactate Dehydrogenase 246 H 81-234 U/L C-Reactive Protein, Quantitative 135.40 H 0.5-3.0 mg/L Procalcitonin 0.47 0.05-0.5 ng/mL Vancomycin Level Trough 9.3 L 10.0-20.0 UG/ML Cytomegalovirus IgG Antibody 5.40 H 0.00-0.59 U/mL [place] Virus IgG Ab Titer 579.0 H 0.0-17.9 U/mL [place] Virus Capsid Ag IgG Ab 292.0 H 0.0-17.9 U/mL [place] Virus Capsid Ag IgM Ab <36.0 0.0-35.9 U/mL [place] Virus Interpretation Comment . Hepatitis A Antibody Total Negative Negative DIAGNOSTICS / RADIOLOGY: PATIENT: CALEB HUNT ACCT: [id number] LOC: [facility] U: [id number] AGE/SX: 55/F ROOM: [facility] RE09/24/[address]: ZACK WOMACK MD : 1970 BED: 1 DIS: STATUS: ADM IN TLOC: SPEC: [id number] OLY: 09/26/25-8 STATUS: RES REQ: [id number] RECD: 09/26/25-1214 [facility] DR: ZACK WOMACK MD SOURCE: BLOOD ENTR: 09/26/25-[address] [facility]: MACY JC MD SPDESC: ROSE MARY FUCHS MD ORDERED: BLOOD CULTURE COMMENTS: Comment: 15 MINS APART What is the Source? BLOOD -------- ---- Procedure Result Obdulio Date-Time BLOOD CULT Preliminary 09/27/25-1507 GRAM STAIN: GRAM POSITIVE COCCI 4 OF 4 SETS AEROBIC BOTTLE CALLED TO NURSE SAMIR ON 09/27 AT 1430 BY VC ASSESSMENT: Methicillin sensitive Staphylococcus aureus bacteremia. Back pain. Diabetes mellitus. PLAN: Continue cefazolin. Continue vancomycin. We will follow up on the MRI results. Continue pain management. This case was reviewed and discussed with my supervising physician Dr. Garg and the above assessment and plan was formulated and agreed upon. ATTESTATION BY PHYSICIAN I have seen and examined the patient. I reviewed the documentation, medical decision making, and treatment plan as noted by the mid-level provider above. I agree with the findings and plan of care. YASMINE GARG MD, [facility] Oct 01, 2025 19:00
[2025-10-06 16:11] LABS: ALPHA-1-ANTITRYPSIN 347 mg/dL (101-187)
== END 2025-10-01 14:15 | disposition left against medical advice (07) | DRG 871 ==
LOC: EDH 08:58 → EDHIP 08:59 → OBSVTOIN 08:59 → 4CH 21:25
PROVIDERS: ADMIT Internal Medicine; ATTEND Internal Medicine
DX: A41.01 Sepsis due to Methicillin susceptible Staphylococcus aureus (principal); G06.1 Intraspinal abscess and granuloma; C79.51 Secondary malignant neoplasm of bone; M46.26 Osteomyelitis of vertebra, lumbar region; R16.2 Hepatomegaly with splenomegaly, not elsewhere classified; G83.4 Cauda equina syndrome; E11.69 Type 2 diabetes mellitus with other specified complication; E66.01 Morbid (severe) obesity due to excess calories; I10 Essential (primary) hypertension; F32.A Depression, unspecified; K76.0 Fatty (change of) liver, not elsewhere classified; D64.9 Anemia, unspecified; B17.9 Acute viral hepatitis, unspecified; Z20.822 Contact with and (suspected) exposure to COVID-19; D64.89 Other specified anemias; M47.819 Spondylosis without myelopathy or radiculopathy, site unspecified; E78.5 Hyperlipidemia, unspecified; M43.17 Spondylolisthesis, lumbosacral region; M46.46 Discitis, unspecified, lumbar region; M47.816 Spondylosis without myelopathy or radiculopathy, lumbar region; M48.061 Spinal stenosis, lumbar region without neurogenic claudication; Z53.29 Procedure and treatment not carried out because of patient's decision for other reasons; K59.00 Constipation, unspecified; R79.89 Other specified abnormal findings of blood chemistry; Z86.73 Personal history of transient ischemic attack (TIA), and cerebral infarction without residual deficits; Z90.49 Acquired absence of other specified parts of digestive tract; Z90.710 Acquired absence of both cervix and uterus; Z79.899 Other long term (current) drug therapy; Z68.33 Body mass index [BMI] 33.0-33.9, adult
CPT/HCPCS: 36415; 71045; 72157; 72158; 74176; 74181; 76700; 80048; 80053; 80074; 80076; 80202; 81001; 82103; 82104; 82390; 82550; 82728; 82948; 82977; 83540; 83550; 83605; 83615; 83690; 84145; 84484; 85025; 85610; 85651; 85730; 86015; 86038; 86140; 86215; 86235; 86376; 86381; 86644; 86645; 86665; 86704; 86705; 86708; 86709; 87040; 87086; 87186; 87426; 87804; 87880; 93005; 93306; 93356; 96374; 96375; 99285; G0378; J0692; J1171; J2270; J2405; J2470; J7042; A9575; J0690; J1308; J3373; J3375